=== PATIENT | male | born 1975 | race Caucasian/White ===

== ENCOUNTER 2018-10-14 13:18 | Inpatient (IN) ==
[2018-10-14 13:49] LABS: Bilirubin,Urine Negative (Negative); Blood,Urine Negative (Negative); Clarity,Urine Clear (Clear); Color,Urine Yellow (Yellow); Glucose,Urine (UA) Normal (Normal); Ketones,Urine Negative (Negative); Leukocyte Esterase,Urine Negative (Negative); Nitrite,Urine Negative (Negative); PH,Urine 5.5 pH Units (5.0-8.0); Protein,Urine Trace mg/dL (Neg-Trace); Specific Gravity,Urine 1.027 (1.010-1.025); Urobilinogen,Urine Normal (Normal)
--- NOTE | 2018-10-14 14:10 | Emergency Department Note ---
Disposition Clinical Impression: Elevated troponin, Ground glass opacity present on imaging of lung Dyspnea Qualifiers: Dyspnea type: dyspnea on exertion Qualified Code(s): R06.09 - Other forms of dyspnea CHF (congestive heart failure) Qualifiers: Heart failure type: systolic Heart failure chronicity: acute on chronic Qualified Code(s): I50.23 - Acute on chronic systolic (congestive) heart failure Disposition: Admitted As Inpatient Condition: Undetermined Referrals: NONE,PCP [Primary Care Provider] - Forms: ED Satisfaction Letter Time of Disposition: 16:19 General Adult HPI - General Chief complaint: ED Psychiatric Symptoms Stated complaint: SI Time Seen by Provider: 10/14/18 13:29 Source: patient Mode of arrival: ambulatory Limitations: no limitations Nursing Notes Reviewed: Yes Vital Signs Reviewed: Yes - History of Present Illness HPI Narrative: 43-year-old male with history of CHF, pacemaker defibrillator arrives to the emergency department multiple complaints. The patient has some this was thoughts but no true ideation. He states this is more managed to live anymore. The patient states that he has been dealing with some difficulty breathing, recent pneumonia, some abdominal pain. Patient had a recent endoscopy a few Days ago and was noted to have some mild abdominal discomfort. He denies any specific other complaints at this time. Patient is lucid and answering questions appropriately the room. No other acute processes noted. Pain Scale: 8 - Related Data Home Medications Medication Instructions Recorded Confirmed Aspirin Enteric Coated [Aspirin EC] 81 mg PO DAILY 10/14/18 10/14/18 Atorvastatin [Lipitor] 40 mg PO HS 10/14/18 10/14/18 Benzonatate [Tessalon] 200 mg PO TID PRN 10/14/18 10/14/18 Carvedilol 3.125 mg PO BID 10/14/18 10/14/18 Clopidogrel [Plavix] 75 mg PO DAILY 10/14/18 10/14/18 Doxycycline Hyclate 100 mg PO BID 10/14/18 10/14/18 Furosemide [Lasix] 20 mg PO DAILY 10/14/18 10/14/18 Lisinopril 2.5 mg PO DAILY 10/14/18 10/14/18 Metoprolol XL (24 HR) Succ [Toprol 25 mg PO DAILY 10/14/18 10/14/18 Xl] Nitroglycerin 0.4 mg SL AD PRN 10/14/18 10/14/18 Nystatin [Nystatin Suspension] 500,000 unit PO QID 10/14/18 10/14/18 Phenol [Chloraseptic] 2 spray MM 3-4XD PRN 10/14/18 10/14/18 Potassium Chloride [Klor-Con 10] 10 meq PO DAILY 10/14/18 10/14/18 Allergies Allergy/AdvReac Type Severity Reaction Status Date / Time ibuprofen [From Motrin] Allergy See Verified 10/14/18 15:05 Comments tramadol Allergy See Verified 10/14/18 15:05 Comments IVP DYE AdvReac Itching Uncoded 10/14/18 15:05 All systems ED: reviewed and negative except as stated. Constitutional: Denies: fever, chills, weakness ENT ED: Denies: dysphagia Cardiovascular: Reports: chest pain, dyspnea on exertion Respiratory: Reports: dyspnea. Denies: cough, sputum production Gastrointestinal: Reports: abdominal pain. Denies: nausea, vomiting, diarrhea Genitourinary: Denies: urgency, dysuria Musculoskeletal: Denies: back pain Integumentary: Denies: rash Neurological: Denies: headache Past Medical History - Past Medical History Attestation: Yes The following information was validated with the patient. Source: patient, old records reviewed Medical history: Reports: CHF, coronary artery disease, hypertension Surgical history: Reports: pacemaker/AICD Psychiatric history: Reports: depression - Social History Smoking Status: Current some day smoker Alcohol use: Reports: occasionally Drug use: Reports: marijuana Physical Exam - General Limitations: no limitations General appearance: alert, in no apparent distress - Head Head exam: atraumatic, normocephalic, normal inspection - Eye Eye exam: Present: normal appearance, PERRL, EOMI - ENT ENT exam: normal exam, normal oropharynx, mucous membranes moist - Neck Neck exam: Present: normal inspection, full ROM, trachea midline - Chest Chest inspection: Present: normal inspection, symmetric chest wall rise - Respiratory Respiratory exam: Present: normal lung sounds bilaterally - Cardiovascular Cardiovascular exam: Present: normal rhythm, tachycardia, normal heart sounds - Abdominal Exam Abdominal exam: Present: soft, tenderness (Diffuse, primarily epigastric). Absent: distention, guarding, rebound, rigidity - Extremities Exam Extremities exam: Present: normal inspection, full ROM, normal capillary refill. Absent: tenderness, pedal edema - Neurological Exam Neurological exam: Present: alert, oriented X3 - Skin Skin exam: Present: warm, dry, intact, normal color Course Vital Signs Temperature 98.1 F 10/14/18 13:24 Pulse Rate 110 10/14/18 13:24 Respiratory Rate 20 10/14/18 13:24 Blood Pressure 101/60 10/14/18 13:24 O2 Sat by Pulse Oximetry 97 10/14/18 13:24 Temperature 98.1 F 10/14/18 13:33 Pulse Rate 110 10/14/18 13:33 Respiratory Rate 20 10/14/18 13:33 Blood Pressure 101/60 10/14/18 13:33 O2 Sat by Pulse Oximetry 97 10/14/18 13:33 Oxygen Delivery Oxygen Delivery Room Air Medical Decision Making - MDM Narrative Medical decision making narrative: Patient's workup demonstrates findings concerning for elevated troponin here in the ED. He is currently chest pain-free below this past history of CHF and chest discomfort I am concerned and the patient was administered aspirin. The patient also finds consistent with a CHF. He does have groundglass appearance noted on CT scan of the abdomen and pelvis as well as atelectasis on chest x- ray. The patient will be administered azithromycin and Rocephin given the groundglass appearance and his history of some shortness of breath. The patient remains without suicidal ideation and without homicidal ideation. I do not feel as though the patient is be pink slipped at this time as the patient is stable however I do feel as though the patient will need consultation with psychiatric services. The patient will be admitted to the hospital at this time for further observation and care. We will cancel bedside sitter at this time. Patient made aware and agrees to plan. No further questions or concerns noted. Accepted by Dr. Simms. - Lab Data Lab results reviewed: Yes I reviewed the patient's lab results. Result diagrams: 10/14/18 13:54 10/14/18 13:54 Lab Results 10/14/18 10/14/18 10/14/18 Range/Units 13:40 13:40 13:54 WBC 12.9 H (4.3-11.1) K/mcL RBC 5.03 (4.19-5.50) M/mcL Hgb 14.0 (12.9-16.9) g/dL Hct 41.6 (37.5-50.1) % MCV 82.7 L (83.0-100.0) fL MCH 27.8 L (28.0-33.3) pg MCHC 33.7 (31.6-35.5) g/dL RDW 14.3 (11.5-14.5) % Plt Count 377 (140-400) K/mcL MPV 10.0 (9.4-12.4) fL Immature Gran % 2.1 (0-4) % Seg Neutrophils % 63.8 % Lymphocytes % 23.9 % Monocytes % 9.8 % Eosinophils % 0.2 % Basophils % 0.2 % Neutrophils # 8.2 (1.6-8.9) K/mcL Lymphocytes # 3.1 (0.6-4.6) K/mcL Monocytes # 1.3 (0.0-1.3) K/mcL Eosinophils # 0.0 (0.0-0.6) K/mcL Basophils # 0.0 (0.0-0.2) K/mcL Platelet Estimate Normal (Normal) Anisocytosis 1+ A (Not Present) Sodium (136-145) mEq/L Potassium (3.5-5.1) mEq/L Chloride (98-107) mEq/L Carbon Dioxide (23-29) mEq/L BUN (6-20) mg/dL Creatinine (0.70-1.30) mg/dL Est GFR ( Amer) (> 60) Est GFR (Non-Af Amer) (> 60) BUN/Creatinine Ratio (6-26) Glucose (70-105) mg/dL Calculated Osmolality (280-300) Calcium (8.6-10.3) mg/dL Troponin I (< 0.04) ng/mL B-Natriuretic Peptide (Less than 100) pg/mL Urine Color Yellow (Yellow) Urine Clarity Clear (Clear) Urine pH 5.5 (5.0-8.0) pH Units Ur Specific [place] 1.027 H (1.010-1.025) Urine Protein Trace (Neg-Trace) mg/dL Urine Glucose (UA) Normal (Normal) mg/dL Urine Ketones Negative (Negative) mg/dL Urine Blood Negative (Negative) Urine Nitrite Negative (Negative) Urine Bilirubin Negative (Negative) Urine Urobilinogen Normal (Normal) mg/dL Ur Leukocyte Esterase Negative (Negative) Salicylates (15.0-30.0) mg/dL Urine Opiates Screen Negative (Swekkc=084) ng/mL Acetaminophen (10-20) mcg/mL Ur Barbiturates Screen Negative (Yxcvfg=853) ng/mL Ur Phencyclidine Scrn Negative (Cutoff=25) ng/mL Ur Amphetamines Screen Negative (Bgylvv=6390) ng/mL U Benzodiazepines Scrn Positive H (Eszymm=592) ng/mL Urine Cocaine Screen Negative (Cutoff= 300) ng/mL U Marijuana (THC) Screen Positive H (Cutoff = 50) ng/mL Ur Drug Screen Interp See Below Ethyl Alcohol (Less than 10) mg/dL 10/14/18 10/14/18 Range/Units 13:54 13:54 WBC (4.3-11.1) K/mcL RBC (4.19-5.50) M/mcL Hgb (12.9-16.9) g/dL Hct (37.5-50.1) % MCV (83.0-100.0) fL MCH (28.0-33.3) pg MCHC (31.6-35.5) g/dL RDW (11.5-14.5) % Plt Count (140-400) K/mcL MPV (9.4-12.4) fL Immature Gran % (0-4) % Seg Neutrophils % % Lymphocytes % % Monocytes % % Eosinophils % % Basophils % % Neutrophils # (1.6-8.9) K/mcL Lymphocytes # (0.6-4.6) K/mcL Monocytes # (0.0-1.3) K/mcL Eosinophils # (0.0-0.6) K/mcL Basophils # (0.0-0.2) K/mcL Platelet Estimate (Normal) Anisocytosis (Not Present) Sodium 136 (136-145) mEq/L Potassium 4.4 (3.5-5.1) mEq/L Chloride 102 (98-107) mEq/L Carbon Dioxide 25 (23-29) mEq/L BUN 34 H (6-20) mg/dL Creatinine 1.14 (0.70-1.30) mg/dL Est GFR ( Amer) > 60 (> 60) Est GFR (Non-Af Amer) > 60 (> 60) BUN/Creatinine Ratio 30 H (6-26) Glucose 139 H (70-105) mg/dL Calculated Osmolality 292 (280-300) Calcium 8.4 L (8.6-10.3) mg/dL Troponin I 0.05 H* (< 0.04) ng/mL B-Natriuretic Peptide 378 H (Less than 100) pg/mL Urine Color (Yellow) Urine Clarity (Clear) Urine pH (5.0-8.0) pH Units Ur Specific [place] (1.010-1.025) Urine Protein (Neg-Trace) mg/dL Urine Glucose (UA) (Normal) mg/dL Urine Ketones (Negative) mg/dL Urine Blood (Negative) Urine Nitrite (Negative) Urine Bilirubin (Negative) Urine Urobilinogen (Normal) mg/dL Ur Leukocyte Esterase (Negative) Salicylates < 2.5 L (15.0-30.0) mg/dL Urine Opiates Screen (Squiyc=759) ng/mL Acetaminophen < 10 L (10-20) mcg/mL Ur Barbiturates Screen (Fmcqhi=604) ng/mL Ur Phencyclidine Scrn (Cutoff=25) ng/mL Ur Amphetamines Screen (Uwizep=7733) ng/mL U Benzodiazepines Scrn (Mbbkik=353) ng/mL Urine Cocaine Screen (Cutoff= 300) ng/mL U Marijuana (THC) Screen (Cutoff = 50) ng/mL Ur Drug Screen Interp Ethyl Alcohol < 10 (Less than 10) mg/dL - Radiology Data Radiology results reviewed: Yes I reviewed the patient's radiology results. Chest X-Ray 10/14/18 13:34 IMPRESSION: No active cardiopulmonary disease D/ / Jamel Cardenas MD / Jamel Cardenas MD Interpreting Provider: Jamel Cardenas MD Abdomen/Pelvis CT 10/14/18 14:05 IMPRESSION: Large amount of stool throughout the length of the colon. Nonobstructing left nephrolithiasis. Patchy ground-glass opacity at the lung bases bilaterally, for which edema or pneumonitis are considerations. Mild induration of the subcutaneous fat of the left lower quadrant anterior abdominal wall, potentially related to contusion, localized inflammation, or cellulitis. Suggest correlation with physical exam. D/ / Donta Madera MD / Donta Madera MD Interpreting Provider: Donta Madera MD - EKG Data EKG #1 EKG attestation: Yes I reviewed and interpreted this EKG. EKG results narrative: Heart rate 110 beats for minute. Sinus tachycardia. No ST elevation or ST depression noted. Attestation Statement - Attestation Attestation: I, Abiel Meredith DO, examined this patient [id number] and my medical decision-making was reviewed with Sae Hummel DO, Resident Physician. I agree with the documented findings, disposition and treatment plan as described except to the extent set forth below. I personally supervised and was present for the franklin/critical portions of the procedures completed by the resident documented below. Please see my progress notes for details.
[2018-10-14 14:20] LABS: Amphetamine Screen,Urine Negative ng/mL (Cutoff=1000); Barbiturate Screen,Urine Negative ng/mL (Cutoff=200); Benzodiazepines Screen,Urine Positive ng/mL (Cutoff=200); Cannabinoid Screen,Urine Positive ng/mL (Cutoff = 50); Cocaine Screen,Urine Negative ng/mL (Cutoff= 300); Opiate Screen,Urine Negative ng/mL (Cutoff=300); Phencyclidine Screen,Urine Negative ng/mL (Cutoff=25)
[2018-10-14 14:26] LABS: Basophils % 0.2 %; Eosinophils % 0.2 %; Hematocrit 41.6 % (37.5-50.1); Immature Granulocytes % 2.1 % (0-4); Lymphocytes # 3.1 K/mcL (0.6-4.6); Lymphocytes % 23.9 %; Mean Corpuscular HGB Conc 33.7 g/dL (31.6-35.5); Mean Corpuscular Hemoglobin 27.8 pg (28.0-33.3); Mean Corpuscular Volume 82.7 fL (83.0-100.0); Monocytes # 1.3 K/mcL (0.0-1.3); Monocytes % 9.8 %; Platelet Count 377 K/mcL (140-400); Red Blood Count 5.03 M/mcL (4.19-5.50); Red Cell Distribution Width 14.3 % (11.5-14.5); Segmented Neutrophils % 63.8 %
[2018-10-14 14:28] LABS: Neutrophils # 8.2 K/mcL (1.6-8.9)
[2018-10-14 14:46] LABS: Acetaminophen < 10 mcg/mL (10-20); BUN/Creatinine Ratio 30 (6-26); Blood Urea Nitrogen 34 mg/dL (6-20); Calcium 8.4 mg/dL (8.6-10.3); Carbon Dioxide 25 mEq/L (23-29); Chloride 102 mEq/L (98-107); Ethanol < 10 mg/dL (Less than 10); Glucose 139 mg/dL (70-105); Osmolality,Calculated 292 (280-300); Potassium 4.4 mEq/L (3.5-5.1); Salicylate < 2.5 mg/dL (15.0-30.0); Sodium 136 mEq/L (136-145); eGFR For Non-African Americans > 60 (> 60)
[2018-10-14 14:48] LABS: Anisocytosis 1+ (Not Present); Platelet Estimate Normal (Normal)
--- NOTE | 2018-10-14 14:57 | Emergency Department Note ---
Disposition Clinical Impression: Elevated troponin, Ground glass opacity present on imaging of lung Dyspnea Qualifiers: Dyspnea type: dyspnea on exertion Qualified Code(s): R06.09 - Other forms of dyspnea CHF (congestive heart failure) Qualifiers: Heart failure type: systolic Heart failure chronicity: acute on chronic Qualified Code(s): I50.23 - Acute on chronic systolic (congestive) heart failure Disposition: Admitted As Inpatient Condition: Good Referrals: NONE,PCP [Primary Care Provider] - Forms: ED Satisfaction Letter Time of Disposition: 16:19 General Adult HPI - General Chief complaint: ED General Medical Stated complaint: SI Time Seen by Provider: 10/14/18 13:29 Source: patient Mode of arrival: ambulatory Limitations: no limitations - History of Present Illness Pain Scale: 8 - Related Data Home Medications Medication Instructions Recorded Confirmed Aspirin Enteric Coated [Aspirin EC] 81 mg PO DAILY 10/14/18 10/14/18 Atorvastatin [Lipitor] 40 mg PO HS 10/14/18 10/14/18 Benzonatate [Tessalon] 200 mg PO TID PRN 10/14/18 10/14/18 Carvedilol 3.125 mg PO BID 10/14/18 10/14/18 Clopidogrel [Plavix] 75 mg PO DAILY 10/14/18 10/14/18 Doxycycline Hyclate 100 mg PO BID 10/14/18 10/14/18 Furosemide [Lasix] 20 mg PO DAILY 10/14/18 10/14/18 Lisinopril 2.5 mg PO DAILY 10/14/18 10/14/18 Metoprolol XL (24 HR) Succ [Toprol 25 mg PO DAILY 10/14/18 10/14/18 Xl] Nitroglycerin 0.4 mg SL AD PRN 10/14/18 10/14/18 Nystatin [Nystatin Suspension] 500,000 unit PO QID 10/14/18 10/14/18 Phenol [Chloraseptic] 2 spray MM 3-4XD PRN 10/14/18 10/14/18 Potassium Chloride [Klor-Con 10] 10 meq PO DAILY 10/14/18 10/14/18 Allergies Allergy/AdvReac Type Severity Reaction Status Date / Time ibuprofen [From Motrin] Allergy See Verified 10/14/18 15:05 Comments tramadol Allergy See Verified 10/14/18 15:05 Comments IVP DYE AdvReac Itching Uncoded 10/14/18 15:05 Constitutional: Denies: fever, chills, weakness ENT ED: Denies: dysphagia Cardiovascular: Reports: chest pain, dyspnea on exertion Respiratory: Reports: dyspnea. Denies: cough, sputum production Gastrointestinal: Reports: abdominal pain. Denies: nausea, vomiting, diarrhea Genitourinary: Denies: urgency, dysuria Musculoskeletal: Denies: back pain Integumentary: Denies: rash Neurological: Denies: headache Past Medical History - Past Medical History Medical history: Reports: CHF, coronary artery disease, hypertension Surgical history: Reports: pacemaker/AICD Psychiatric history: Reports: depression - Social History Smoking Status: Current some day smoker Smokeless Tobacco Status: No Alcohol use: Reports: occasionally Drug use: Reports: marijuana Physical Exam - General Limitations: no limitations General appearance: alert, in no apparent distress Course Vital Signs Temperature 98.1 F 10/14/18 13:24 Pulse Rate 110 10/14/18 13:24 Respiratory Rate 20 10/14/18 13:24 Blood Pressure 101/60 10/14/18 13:24 O2 Sat by Pulse Oximetry 97 10/14/18 13:24 Temperature 98.1 F 10/14/18 13:33 Pulse Rate 110 10/14/18 13:33 Respiratory Rate 20 10/14/18 13:33 Blood Pressure 101/60 10/14/18 13:33 O2 Sat by Pulse Oximetry 97 10/14/18 13:33 Oxygen Delivery Oxygen Delivery Room Air Medical Decision Making - Lab Data Result diagrams: 10/14/18 13:54 10/14/18 13:54 Lab Results 10/14/18 10/14/18 10/14/18 Range/Units 13:40 13:40 13:54 WBC 12.9 H (4.3-11.1) K/mcL RBC 5.03 (4.19-5.50) M/mcL Hgb 14.0 (12.9-16.9) g/dL Hct 41.6 (37.5-50.1) % MCV 82.7 L (83.0-100.0) fL MCH 27.8 L (28.0-33.3) pg MCHC 33.7 (31.6-35.5) g/dL RDW 14.3 (11.5-14.5) % Plt Count 377 (140-400) K/mcL MPV 10.0 (9.4-12.4) fL Immature Gran % 2.1 (0-4) % Seg Neutrophils % 63.8 % Lymphocytes % 23.9 % Monocytes % 9.8 % Eosinophils % 0.2 % Basophils % 0.2 % Neutrophils # 8.2 (1.6-8.9) K/mcL Lymphocytes # 3.1 (0.6-4.6) K/mcL Monocytes # 1.3 (0.0-1.3) K/mcL Eosinophils # 0.0 (0.0-0.6) K/mcL Basophils # 0.0 (0.0-0.2) K/mcL Platelet Estimate Normal (Normal) Anisocytosis 1+ A (Not Present) Sodium (136-145) mEq/L Potassium (3.5-5.1) mEq/L Chloride (98-107) mEq/L Carbon Dioxide (23-29) mEq/L BUN (6-20) mg/dL Creatinine (0.70-1.30) mg/dL Est GFR ( Amer) (> 60) Est GFR (Non-Af Amer) (> 60) BUN/Creatinine Ratio (6-26) Glucose (70-105) mg/dL Calculated Osmolality (280-300) Calcium (8.6-10.3) mg/dL Troponin I (< 0.04) ng/mL B-Natriuretic Peptide (Less than 100) pg/mL Urine Color Yellow (Yellow) Urine Clarity Clear (Clear) Urine pH 5.5 (5.0-8.0) pH Units Ur Specific [place] 1.027 H (1.010-1.025) Urine Protein Trace (Neg-Trace) mg/dL Urine Glucose (UA) Normal (Normal) mg/dL Urine Ketones Negative (Negative) mg/dL Urine Blood Negative (Negative) Urine Nitrite Negative (Negative) Urine Bilirubin Negative (Negative) Urine Urobilinogen Normal (Normal) mg/dL Ur Leukocyte Esterase Negative (Negative) Salicylates (15.0-30.0) mg/dL Urine Opiates Screen Negative (Cilyxw=771) ng/mL Acetaminophen (10-20) mcg/mL Ur Barbiturates Screen Negative (Kcptfc=762) ng/mL Ur Phencyclidine Scrn Negative (Cutoff=25) ng/mL Ur Amphetamines Screen Negative (Wozoxd=5635) ng/mL U Benzodiazepines Scrn Positive H (Qtxwme=663) ng/mL Urine Cocaine Screen Negative (Cutoff= 300) ng/mL U Marijuana (THC) Screen Positive H (Cutoff = 50) ng/mL Ur Drug Screen Interp See Below Ethyl Alcohol (Less than 10) mg/dL 10/14/18 10/14/18 Range/Units 13:54 13:54 WBC (4.3-11.1) K/mcL RBC (4.19-5.50) M/mcL Hgb (12.9-16.9) g/dL Hct (37.5-50.1) % MCV (83.0-100.0) fL MCH (28.0-33.3) pg MCHC (31.6-35.5) g/dL RDW (11.5-14.5) % Plt Count (140-400) K/mcL MPV (9.4-12.4) fL Immature Gran % (0-4) % Seg Neutrophils % % Lymphocytes % % Monocytes % % Eosinophils % % Basophils % % Neutrophils # (1.6-8.9) K/mcL Lymphocytes # (0.6-4.6) K/mcL Monocytes # (0.0-1.3) K/mcL Eosinophils # (0.0-0.6) K/mcL Basophils # (0.0-0.2) K/mcL Platelet Estimate (Normal) Anisocytosis (Not Present) Sodium 136 (136-145) mEq/L Potassium 4.4 (3.5-5.1) mEq/L Chloride 102 (98-107) mEq/L Carbon Dioxide 25 (23-29) mEq/L BUN 34 H (6-20) mg/dL Creatinine 1.14 (0.70-1.30) mg/dL Est GFR ( Amer) > 60 (> 60) Est GFR (Non-Af Amer) > 60 (> 60) BUN/Creatinine Ratio 30 H (6-26) Glucose 139 H (70-105) mg/dL Calculated Osmolality 292 (280-300) Calcium 8.4 L (8.6-10.3) mg/dL Troponin I 0.05 H* (< 0.04) ng/mL B-Natriuretic Peptide 378 H (Less than 100) pg/mL Urine Color (Yellow) Urine Clarity (Clear) Urine pH (5.0-8.0) pH Units Ur Specific [place] (1.010-1.025) Urine Protein (Neg-Trace) mg/dL Urine Glucose (UA) (Normal) mg/dL Urine Ketones (Negative) mg/dL Urine Blood (Negative) Urine Nitrite (Negative) Urine Bilirubin (Negative) Urine Urobilinogen (Normal) mg/dL Ur Leukocyte Esterase (Negative) Salicylates < 2.5 L (15.0-30.0) mg/dL Urine Opiates Screen (Fikurf=751) ng/mL Acetaminophen < 10 L (10-20) mcg/mL Ur Barbiturates Screen (Wduwxs=591) ng/mL Ur Phencyclidine Scrn (Cutoff=25) ng/mL Ur Amphetamines Screen (Azcylv=7676) ng/mL U Benzodiazepines Scrn (Ptzajk=466) ng/mL Urine Cocaine Screen (Cutoff= 300) ng/mL U Marijuana (THC) Screen (Cutoff = 50) ng/mL Ur Drug Screen Interp Ethyl Alcohol < 10 (Less than 10) mg/dL Attestation Statement - Attestation Attestation: I, Abiel Meredith DO, examined this patient [id number] and my medical decision-making was reviewed with Sae Hummel DO, Resident Physician. I agree with the documented findings, disposition and treatment plan as described except to the extent set forth below. I personally supervised and was present for the franklin/critical portions of the procedures completed by the resident documented below. Please see my progress notes for details. 43-year-old male presents emergency room for evaluation of suicidal ideation with no specific plan. Patient also has some tangential thought. Patient does have chronic medical issues including cardiac related issues as well as having a recent endoscopy completed yesterday. He is having some mild abdominal discomfort. He is denying any fevers or chills. He does not have any shortness of breath chest pain or complaints at this time. Denies any nausea vomiting or diarrhea. He has not fallen or injured himself. He denies any ingestion of me dications attempt to hurt himself. At this time is otherwise currently stable. Vital signs reviewed and he is tachycardic on presentation. Head is atraumatic. His lungs are clear. His heart is regular. Anterior pacemaker site appears to be well-healed and showing no signs of infection. Abdomen is soft does have some mild discomfort with palpation. No point tenderness guarding or rigidity i s noted on exam. He denies any urinary symptoms or discharge. Patient will have medical clearance evaluation completed this time a chest x-ray EKG and labs including CT imaging of the abdomen. Psychiatric evaluation will be completed after the medical clearance has been established. Otherwise the patient is describing no other acute issues or symptoms at this time. Disposition pending full workup and treatment course. See detailed documentation of the physical exam, medical intervention, medical decision-making and disposition in the resident physician's note. No critical care applied the patient's treatment course at this time. 1500 Patient found have an elevated troponin here today. Chest x-ray is unremarkable and the patient is chest pain-free here. He has had intermittent chest pain or last several days. Because this patient was provided with an aspirin. He will be admitted for chest pain evaluation and psychiatric treatment during the hospital stay. No other acute issues at this time. Patient is otherwise clinically stable. Admission process to be established at this point. CT imaging of the abdomen is still pending and once that is result of the disposition will be completed. Patient also has bilateral pneumonia. Antibiotic regimen has been started. Is otherwise clinically stable. The hospitalist Dr. chadwick has reviewed the case. No other recommendations or concerns this time. Patient is not currently pink slip because he is denying suicidal ideation or other symptoms at this time. Patient is otherwise clinically stable. He will be monitored here in the emergency department until admission process is completed.
[2018-10-14 14:59] LABS: Troponin I 0.05 ng/mL (< 0.04)
[2018-10-14] MEDS ORDERED: Aspirin 325 MG TABLET PO ONE (14:59)
[2018-10-14] MEDS ORDERED: *HR* OxyCODONE/APAP 5/325 TABLET PO ONE (15:38)
[2018-10-14] MEDS ORDERED: cefTRIAXone 1,000 MG in Water for inj. (sterile) 20 ML 10 ML IVP ONE (15:53)
[2018-10-14] MEDS ORDERED: Azithromycin 500 MG in D5% in Water 250 ML IVPB ONE (15:53)
[2018-10-14] MEDS ORDERED: Naloxone 0.4 MG/ML INJ IVP PRN (16:29)
[2018-10-14] MEDS ORDERED: Nitroglycerin 0.4 MG TAB.SUBL SL PRN (16:32)
[2018-10-14] MEDS ORDERED: Furosemide 40 MG/4 ML VIAL IVP SCH (16:45)
--- NOTE | 2018-10-14 17:19 | Internal Med History&Physical ---
Date of Encounter: 10/14/18 Time of Encounter: 17:07 Internal Medicine - H&P: HPI Chief complaint: generalized weakness. shortness of breath Admitted From: Home Plans for Post Hospital Care: Home History of present illness: Mr. Tang is a 43 year old male PMH of severe CHF e.f 20%, CAD, multiples MIs last one a month ago, Interstitial lung disease? and recent pneumonia. Patient presented to the ED due to generalized weakness, shortness of breath, and chest discomfort. Patient reports that for the past month he has been hospitalized multiple times. Reports that he was admitted at a hospital in [facility] due to pneumonia and he was in the hospital for about 3 weeks and he decided to leave [place], but reports that he went to [facility] 2 days after leaving the hospital at [place] due to chest discomfort and shortness of breath. Reports that at [facility] he was told he had pneumonia and possible interstitial lung disease and acute CHF.He underwent an EGD there which showed oesophagitis and g astritis. He also left [facility] against medical advice 2 days ago. Today he was brought to the ED at [facility] by his significant other as patient continues to have chest discomfort, generalized weakness and shortness of breath with minimal ambulation. Patient reports that he has been having chest discomfort which is worsened by foods. Also reports getting short of breath with minimal ambulation. denies abdominal pain, but reports that he has not have a bowel movement for about 2 weeks now. Also report subjective weight lost of about 30 pounds for the past couple of months. Denies fever/chills or productive cough. Past Med Surg Social Fam HX - Past Medical History Medical history: CHF, coronary artery disease, hypertension Psychiatric history: depression - Past Surgical History Surgical History: pacemaker/AICD - Social History Smoking Status: Current some day smoker Smokeless Tobacco Status: No Alcohol use: occasionally Drug use: marijuana Internal Medicine - H&P: Meds Aspirin Enteric Coated [Aspirin EC] 81 mg PO DAILY 10/14/18 [History] Atorvastatin [Lipitor] 40 mg PO HS 10/14/18 [History] Benzonatate [Tessalon] 200 mg PO TID PRN 10/14/18 [History] Carvedilol 3.125 mg PO BID 10/14/18 [History] Clopidogrel [Plavix] 75 mg PO DAILY 10/14/18 [History] Doxycycline Hyclate 100 mg PO BID 10/14/18 [History] Furosemide [Lasix] 20 mg PO DAILY 10/14/18 [History] Lisinopril 2.5 mg PO DAILY 10/14/18 [History] Metoprolol XL (24 HR) Succ [Toprol Xl] 25 mg PO DAILY 10/14/18 [History] Nitroglycerin 0.4 mg SL AD PRN 10/14/18 [History] Nystatin [Nystatin Suspension] 500,000 unit PO QID 10/14/18 [History] Phenol [Chloraseptic] 2 spray MM 3-4XD PRN 10/14/18 [History] Potassium Chloride [Klor-Con 10] 10 meq PO DAILY 10/14/18 [History] Allergy/AdvReac Type Severity Reaction Status Date / Time ibuprofen [From Motrin] Allergy See Verified 10/14/18 15:05 Comments tramadol Allergy See Verified 10/14/18 15:05 Comments IVP DYE AdvReac Itching Uncoded 10/14/18 15:05 All Systems PM: A 10-system review of systems was performed and is negative for pertinent findings except as documented above in the HPI. - Constitutional Constitutional: anorexia, weakness, no chills, no fever(s) - EENT Eyes: no irritation, no pain Nose, mouth and throat: no dry mouth, no mouth pain - Cardiovascular Cardiovascular ROS IM: chest pain (chest discomfort ), dyspnea on exertion, no irregular heart rhythm, no lightheadedness, no orthopnea, no palpitations, no syncope - Respiratory Respiratory: no cough, no chest congestion, no excessive phlegm production - Gastrointestinal Gastrointestinal: no abdominal pain, no nausea, no tenesmus - Genitourinary Genitourinary ROS male: no dysuria, no urinary frequency, no urinary urgency - Musculoskeletal Musculoskeletal ROS IM: no atrophy, no numbness, no stiffness - Integumentary Integumentary IM: no erythema, no rash - Neurological Neurological ROS: no headache(s), no weakness - Psychiatric Psychiatric: hopelessness, no anxiety, no irritability - Endocrine Endocrine IM: no cold intolerance, no excessive sweating - Hematologic/Lymphatic Hematologic/Lymphatic: no lymphadenopathy - Allergic/Immunologic Allergic/Immunologic: no wheezing - Constitutional Vitals: Temp Pulse Resp BP Pulse Ox 98.1 F 110 20 101/60 97 10/14/18 13:33 10/14/18 13:33 10/14/18 13:33 10/14/18 13:33 10/14/18 13:33 Exam: Vitals: Reviewed General: Alert and oriented x4. In mild distress due to generalized weakness Skin: Normal color, no rash, no lesions. HEENT: EOM, pupils equal, round and reactive. Cardiovascular: RRR, normal S1 & S2, no rubs, murmurs or gallops. Lungs: CTA b/l, no wheezes or crackles. Abdomen: Soft, non-tender, no rigidity. Extremities: No deformity, no edema or tenderness, no joint swelling or clubbing. Neurological: Normal cognition and motor skills. Rest of the physical exam is non contributory Internal Med - H&P Results - Labs CBC & Chem 7: 10/14/18 13:54 10/14/18 13:54 Labs: Short CBC 10/14/18 Range/Units 13:54 WBC 12.9 H (4.3-11.1) K/mcL Hgb 14.0 (12.9-16.9) g/dL Hct 41.6 (37.5-50.1) % Plt Count 377 (140-400) K/mcL Neutrophils # 8.2 (1.6-8.9) K/mcL BMP 10/14/18 13:54 Sodium 136 Potassium 4.4 Chloride 102 Carbon Dioxide 25 BUN 34 H Creatinine 1.14 Glucose 139 H Calcium 8.4 L Cardiac Enzymes 10/14/18 Range/Units 13:54 Troponin I 0.05 H* (< 0.04) ng/mL Urine 10/14/18 Range/Units 13:40 Urine Color Yellow (Yellow) Urine Clarity Clear (Clear) Urine pH 5.5 (5.0-8.0) pH Units Ur Specific [place] 1.027 H (1.010-1.025) Urine Protein Trace (Neg-Trace) mg/dL Urine Glucose (UA) Normal (Normal) mg/dL - Impressions ITS Impressions Chest X-Ray 10/14/18 13:34 IMPRESSION: No active cardiopulmonary disease D/ / Jamel Cardenas MD / Jamel Cardenas MD Interpreting Provider: Jamel Cardenas MD Abdomen/Pelvis CT 10/14/18 14:05 IMPRESSION: Large amount of stool throughout the length of the colon. Nonobstructing left nephrolithiasis. Patchy ground-glass opacity at the lung bases bilaterally, for which edema or pneumonitis are considerations. Mild induration of the subcutaneous fat of the left lower quadrant anterior abdominal wall, potentially related to contusion, localized inflammation, or cellulitis. Suggest correlation with physical exam. D/ / Donta Madera MD / Donta Madera MD Interpreting Provider: Donta Madera MD - Diagnostic Studies Chest x-ray Status: image reviewed by me (no acute pulm disease. ) - Assessment and Plan (1) Pneumonia Current Visit: Yes Status: Suspected Assessment and plan: CT OF THE ABDOMEN AND PELVIS WITHOUT CONTRAST Lower Chest: Portion of pacemaker lead is seen. Patchy ground-glass opacity is seen within the lower lobes and right middle lobe. patient reported being treated for pneumonia about 3 weeks ago and being told he has interstitial lung disease will start patient empirically on piperacillin/tazobactam 3.375mg/IV Q8HRs CT chest to better visualize lung parenchyma D-dimer ordered urine for atypical sputum culture and gram stain Qualifiers: Pneumonia type: due to unspecified organism Laterality: bilateral Lung location: unspecified part of lung Qualified Code(s): J18.9 - Pneumonia, unspecified organism (2) Depression Current Visit: Yes Status: Acute Assessment and plan: patient reports feeling depressed and hopeless due to his sickness for the past couple of months. denies suicidal or homicidal ideation. psychiatry consulted. Qualifiers: Depression Type: unspecified Qualified Code(s): F32.9 - Major depressive disorder, single episode, unspecified (3) Generalized weakness Current Visit: Yes Status: Acute (4) CAD (coronary artery disease) Current Visit: Yes Status: Chronic Assessment and plan: patient reported having a NE about a month ago. will continue plavix 75mg/PO daily. Qualifiers: Coronary Disease-Associated Artery/Lesion type: unspecified vessel or lesion type [place] vs. transplanted heart: unspecified whether [place] or transplanted heart Associated angina: angina presence unspecified Qualified Code(s): I25.10 - Atherosclerotic heart disease of [place] coronary artery without angina pectoris (5) Gastritis Current Visit: Yes Status: Acute Assessment and plan: patient had an EGD at [facility] less than a week ago. will start patient on pantoprazole 40mg/IV daily and sulcrafate. Qualifiers: Gastritis type: unspecified gastritis Chronicity: acute Gastritis bleeding: without bleeding Qualified Code(s): K29.00 - Acute gastritis without bleeding (6) Esophagitis Current Visit: Yes Status: Acute Assessment and plan: plan of care as above (7) CHF (congestive heart failure) Current Visit: Yes Status: Acute Assessment and plan: patient reported being told that his E.F is 20%. will repeat TTE furosemide 40mg/IV daily will resume bb at a lower dose fluid restriction to 1.5 litters a day. daily weight and strict intake and output. Qualifiers: Heart failure type: systolic Heart failure chronicity: acute on chronic Qualified Code(s): I50.23 - Acute on chronic systolic (congestive) heart failure (8) Constipation Current Visit: Yes Status: Acute Assessment and plan: patient reports no having a BM for the past 2 weeks. denies nausea or vomiting. abd/pelv CT: GI/Bowel: Large amount of stool throughout the length of the colon. Appendix is not visualized. Small bowel loops are nondilated. will start patient on lactulose Qualifiers: Constipation type: unspecified constipation type Qualified Code(s): K59.00 - Constipation, unspecified (9) Elevated troponin Current Visit: Yes Status: Acute Assessment and plan: possible due to demand ischemia. patient with mild chf exacerbation will trend troponin if trops trend uo, will place the patient on a heparin drip cafeteria monitor (10) HLD (hyperlipidemia) Current Visit: Yes Status: Chronic Assessment and plan: on atorvastatin 40mg/PO daily Qualifiers: Hyperlipidemia type: unspecified Qualified Code(s): E78.5 - Hyperlipidemia, unspecified - Time Spent With Patient Total time spent is greater than 50% in coordination of care (as documented) at patient's floor/unit and/or counseling patient: Greater than 35 minutes (45)
[2018-10-14] MEDS: *HR* HYDROcodone/Acet 5/325 mg TABLET PO PRN (20:00)
[2018-10-14] MEDS: Piperacillin/Tazobactam 3.375 GM in 0.9 % Sodium Chloride Mini Bag 100 ML IVPB SCH (20:00)
[2018-10-14] MEDS: Pantoprazole 40 MG VIAL IVP SCH (20:02)
[2018-10-14] MEDS ORDERED: Perflutren Lipid Microsphere 1.3 ML in 0.9 % Sodium Chloride 8.7 ML IVP ONE (20:51)
[2018-10-14] MEDS: Levalbuterol Neb 0.63 MG/3 ML IH SCH (22:20)
[2018-10-14] MEDS: Sucralfate 1 GM TABLET PO SCH (22:40)
[2018-10-14] MEDS: Lactulose Oral Soln 20 GM/30 ML UDC PO SCH (22:41)
[2018-10-14] MEDS: *HR* Heparin 5,000 UNIT/ML VIAL SQ SCH (23:18)
[2018-10-15 00:37] LABS: Basophils % 0.2 %; Eosinophils # 0.1 K/mcL (0.0-0.6); Eosinophils % 0.4 %; Hematocrit 36.5 % (37.5-50.1); Immature Granulocytes % 2.2 % (0-4); Lymphocytes # 3.9 K/mcL (0.6-4.6); Lymphocytes % 32.1 %; Mean Corpuscular HGB Conc 33.7 g/dL (31.6-35.5); Mean Corpuscular Hemoglobin 27.7 pg (28.0-33.3); Mean Corpuscular Volume 82.2 fL (83.0-100.0); Mean Platelet Volume 9.9 fL (9.4-12.4); Monocytes # 1.2 K/mcL (0.0-1.3); Monocytes % 9.9 %; Neutrophils # 6.7 K/mcL (1.6-8.9); Platelet Count 297 K/mcL (140-400); Red Blood Count 4.44 M/mcL (4.19-5.50); Segmented Neutrophils % 55.2 %
[2018-10-15 00:49] LABS: Hemoglobin 12.3 g/dL (12.9-16.9)
[2018-10-15] MEDS ORDERED: *HR* OxyCODONE/APAP 5/325 TABLET PO ONE (00:52)
[2018-10-15 00:56] LABS: BUN/Creatinine Ratio 33 (6-26); Blood Urea Nitrogen 30 mg/dL (6-20); Calcium 7.9 mg/dL (8.6-10.3); Carbon Dioxide 24 mEq/L (23-29); Chloride 100 mEq/L (98-107); Cholesterol 181 mg/dL (< 200); Glucose 121 mg/dL (70-105); HDL Cholesterol 30 mg/dL (40-59); LDL Cholesterol,Calculated 130 mg/dL (0-99); Magnesium 2.4 mg/dL (1.6-2.6); Osmolality,Calculated 283 (280-300); Phosphorous 3.7 mg/dL (2.7-4.5); Potassium 3.8 mEq/L (3.5-5.1); Sodium 133 mEq/L (136-145); Triglycerides 103 mg/dL (< 150); eGFR For Non-African Americans > 60 (> 60)
[2018-10-15 02:24] LABS: Platelet Estimate Normal (Normal); Reactive Lymphocytes Present (Not Present)
[2018-10-15] MEDS: Levalbuterol Neb 0.63 MG/3 ML IH SCH ×4 (03:51→22:20)
[2018-10-15] MEDS: Piperacillin/Tazobactam 3.375 GM in 0.9 % Sodium Chloride Mini Bag 100 ML IVPB SCH ×3 (04:22→17:08)
[2018-10-15] MEDS: *HR* Heparin 5,000 UNIT/ML VIAL SQ SCH ×3 (06:11→21:54)
[2018-10-15] MEDS: *HR* HYDROcodone/Acet 5/325 mg TABLET PO PRN ×4 (06:15→23:30)
[2018-10-15] MEDS ORDERED: Metoprolol XL (24 HR) Succ 25 MG TAB.ER.24H PO SCH (09:00)
[2018-10-15] MEDS ORDERED: Levofloxacin 750 MG/150 ML 750 MG/150 ML BAG IVPB SCH (09:00)
[2018-10-15] MEDS ORDERED: Furosemide 20 MG/2 ML VIAL IVP SCH (09:00)
[2018-10-15] MEDS: Aspirin Enteric Coated 81 MG Tablet PO SCH (09:18)
[2018-10-15] MEDS: Sucralfate 1 GM TABLET PO SCH ×4 (09:18→21:55)
[2018-10-15] MEDS: Pantoprazole 40 MG VIAL IVP SCH (09:19)
[2018-10-15] MEDS: Lactulose Oral Soln 20 GM/30 ML UDC PO SCH ×2 (09:19→21:54)
[2018-10-15] MEDS: Levofloxacin 750 MG/150 ML 750 MG/150 ML BAG IVPB SCH (09:20)
--- NOTE | 2018-10-15 09:45 | Internal Med Progress Note ---
Hospitalist Progress Note - Encounter Date of Encounter: 10/15/18 Time of Encounter: 09:43 - Subjective Interval History: I have seen and evaluated the patient at bedside. patient reports having pain with swallowing. denies shortness of breath or chest pain. denies nausea, vomiting or loose stool. - Exam Vitals: Temp Pulse Resp BP Pulse Ox 97.9 F 81 16 84/60 94 10/15/18 07:41 10/15/18 07:41 10/15/18 07:41 10/15/18 07:41 10/15/18 07:41 Exam: Vitals: Reviewed General: Alert and oriented x4. In no distress Cardiovascular: RRR, normal S1 & S2, no rubs, murmurs or gallops. Lungs: CTA b/l, no wheezes or crackles. Abdomen: Soft, non-tender, no rigidity. Extremities: No edema Neurological: Normal cognition and motor skills. Rest of the physical exam is non contributory - Assessment and Plan (1) CHF (congestive heart failure) Current Visit: Yes Status: Acute Assessment and Plan: EV/EV echocardiogram w enhance Impressions: LVEF 20-25%. Severely dilated left ventricle. Severe global and segmental left ventricular systolic dysfunction. Mild left ventricular diastolic dysfunction. Normal right ventricular structure and function. Mildly dilated left atrium. Mild-moderate mitral regurgitation. Unable to estimate RVSP due to lack of TR jet. Recommend Cardiology consult. Plan Continue fluid restriction 1.5 L Decrease furosemide to 20 mg daily, to low blood pressure will discontinue bb due to hypotension cardiology consulted, recommendations appreciated daily weight and strict intake and output (2) Pneumonia Current Visit: Yes Status: Acute Assessment and Plan: CT/CT chest wo con IMPRESSION: Patchy ground-glass infiltrate seen in both the left and right lungs may be secondary to early or atypical pneumonia. Plan patient reported being treated for pneumonia about 3-4 weeks ago. will cover patient for Hcap vancomycin per pharmacy protocol added levofloxacin 750mg/IV daily continue piperacillin/tazobactam 3.375mg/IV Q8HRs sputum culture and gram stain, urine for atypical organism ordered MRSA surveillance ordered (3) Depression Current Visit: Yes Status: Chronic Assessment and Plan: patient reports hopelessness. but denies suicidal or homicidal ideation psychiatry consulted, recommendations appreciated. (4) Generalized weakness Current Visit: Yes Status: Acute Assessment and Plan: multifactorial possible due to prolong hospitalization vs severe chf daily PT/OT ordered (5) CAD (coronary artery disease) Current Visit: Yes Status: Chronic Assessment and Plan: Patient is on dual antiplatelet therapy with aspirin and Plavix. (6) Gastritis Current Visit: Yes Status: Acute Assessment and Plan: patient had an EGD at [facility] less than a week ago. Continue pantoprazole 40mg/IV daily and sulcrafate. (7) Esophagitis Current Visit: Yes Status: Acute Assessment and Plan: plan of care as above (8) Constipation Current Visit: Yes Status: Chronic Assessment and Plan: On lactulose (9) Elevated troponin Current Visit: Yes Status: Acute Assessment and Plan: possible due to demand ischemia. patient with no chest pain or ekg changes. (10) HLD (hyperlipidemia) Current Visit: Yes Status: Chronic Assessment and Plan: Continue atorvastatin DVT Prophylaxis: Patient is on subcutaneous heparin. - Summary of Assessment and Plan Summary of Assessment and Plan: Patient to remain in the hospital due to severe CHF, and generalized weakness. Pneumonia on broad-spectrum antibiotic. - Time Spent with Patient Total time spent is greater than 50% in coordination of care (as documented) at patient's floor/unit and/or counseling patient: Greater than 35 minutes (40) Plan of Care Discussed with: patient (and the nurse) Internal Medicine: Result - Labs CBC & Chem 7: 10/15/18 00:16 10/15/18 00:16 Labs: Short CBC 10/14/18 10/15/18 Range/Units 13:54 00:16 WBC 12.9 H 12.1 H (4.3-11.1) K/mcL Hgb 14.0 12.3 L D (12.9-16.9) g/dL Hct 41.6 36.5 L (37.5-50.1) % Plt Count 377 297 (140-400) K/mcL Neutrophils # 8.2 6.7 (1.6-8.9) K/mcL BMP 10/14/18 10/15/18 13:54 00:16 Sodium 136 133 L Potassium 4.4 3.8 Chloride 102 100 Carbon Dioxide 25 24 BUN 34 H 30 H Creatinine 1.14 0.92 Glucose 139 H 121 H Calcium 8.4 L 7.9 L Cardiac Enzymes 10/14/18 10/14/18 10/15/18 Range/Units 13:54 18:01 00:16 Troponin I 0.05 H* 0.05 H* 0.06 H* (< 0.04) ng/mL 10/15/18 Range/Units 06:08 Troponin I 0.06 H* (< 0.04) ng/mL Urine 10/14/18 Range/Units 13:40 Urine Color Yellow (Yellow) Urine Clarity Clear (Clear) Urine pH 5.5 (5.0-8.0) pH Units Ur Specific [place] 1.027 H (1.010-1.025) Urine Protein Trace (Neg-Trace) mg/dL Urine Glucose (UA) Normal (Normal) mg/dL - ABG Interpretation ABG results: PT/INR, D-dimer 1064 ng/mLFEU (0-500) H 10/14/18 18:01 - Impressions Impressions Chest X-Ray 10/14/18 13:34 IMPRESSION: No active cardiopulmonary disease D/ / Jamel Cardenas MD / Jamel Cardenas MD Interpreting Provider: Jamel Cardenas MD Abdomen/Pelvis CT 10/14/18 14:05 IMPRESSION: Large amount of stool throughout the length of the colon. Nonobstructing left nephrolithiasis. Patchy ground-glass opacity at the lung bases bilaterally, for which edema or pneumonitis are considerations. Mild induration of the subcutaneous fat of the left lower quadrant anterior abdominal wall, potentially related to contusion, localized inflammation, or cellulitis. Suggest correlation with physical exam. D/ / Donta Madera MD / Donta Madera MD Interpreting Provider: Donta Madera MD Echocardiogram 10/14/18 16:32 Impressions: LVEF 20-25%. Severely dilated left ventricle. Severe global and segmental left ventricular systolic dysfunction. Mild left ventricular diastolic dysfunction. Normal right ventricular structure and function. Mildly dilated left atrium. Mild-moderate mitral regurgitation. Unable to estimate RVSP due to lack of TR jet. Recommend Cardiology consult. Left Ventricular Wall Motion: Rest Echo Findings The apex, apical inferior, apical anterior, mid anterior, basal anterior, apical septal, mid inferior septal, basal inferior septal, apical lateral, mid anterior lateral, basal anterior lateral, mid anterior septal, mid inferior lateral, basal anterior septal and basal inferior lateral ortiz were hypokinetic. The mid inferior and basal inferior ortiz were akinetic. Findings: Study Quality * Technically adequate exam. ECG Findings * Normal sinus rhythm. Left Ventricle * LVEF 20-25%. * Severely dilated left ventricle. * Mild eccentricic left ventricular hypertrophy. * Severe global and segmental left ventricular systolic dysfunction. * Mild left ventricular diastolic dysfunction. * There is no LV thrombus. * Definity echo contrast was used. Right Ventricle * Normal right ventricular structure and function. Left Atrium * Mildly dilated left atrium. Right Atrium * Normal right atrial size. Interatrial Septum * Interatrial septum not well evaluated. Aortic Valve * Aortic valve not well visualized. * No aortic regurgitation. * Normal aortic valve function. Mitral Valve * Normal mitral valve structure. * No mitral stenosis. * Mild-moderate mitral regurgitation. Tricuspid Valve * Normal tricuspid valve structure. * No tricuspid stenosis. * Trace tricuspid regurgitation. * Unable to estimate RVSP due to lack of TR jet. * Estimated RA pressure is 3 mmHg. Pulmonic Valve * Pulmonic valve is not well visualized. * No pulmonic stenosis. * No pulmonic regurgitation. Aorta * Normally sized aortic root. Pericardium * The pericardium appears normal. IVC * The IVC is not dilated. * > 50% respiratory change Device lead * A device lead was visualized in the right atrium and right ventricle. Chest CT 10/14/18 17:04 IMPRESSION: Patchy ground-glass infiltrate seen in both the left and right lungs may be secondary to early or atypical pneumonia. D/ / 10/14/2018 18:02:14 Shorty Acevedo MD / [facility] Interpreting Provider: Shorty Acevedo MD Consult Discharge Plan - Plan Referrals: NONE,PCP [Primary Care Provider] - (1) CHF (congestive heart failure) Qualifiers: Heart failure type: systolic Heart failure chronicity: acute on chronic Qualified Code(s): I50.23 - Acute on chronic systolic (congestive) heart failure (2) Pneumonia Qualifiers: Pneumonia type: due to unspecified organism Laterality: bilateral Lung location: unspecified part of lung Qualified Code(s): J18.9 - Pneumonia, unspecified organism (3) Depression Qualifiers: Depression Type: unspecified Qualified Code(s): F32.9 - Major depressive disorder, single episode, unspecified (5) CAD (coronary artery disease) Qualifiers: Coronary Disease-Associated Artery/Lesion type: unspecified vessel or lesion type [place] vs. transplanted heart: unspecified whether [place] or transplanted heart Associated angina: angina presence unspecified Qualified Code(s): I25.10 - Atherosclerotic heart disease of [place] coronary artery without angina pectoris (6) Gastritis Qualifiers: Gastritis type: unspecified gastritis Chronicity: acute Gastritis bleeding: without bleeding Qualified Code(s): K29.00 - Acute gastritis without bleeding (8) Constipation Qualifiers: Constipation type: unspecified constipation type Qualified Code(s): K59.00 - Constipation, unspecified (10) HLD (hyperlipidemia) Qualifiers: Hyperlipidemia type: unspecified Qualified Code(s): E78.5 - Hyperlipidemia, unspecified
--- NOTE | 2018-10-15 09:49 | Consult Note ---
Date of Encounter: 10/15/18 Time of Encounter: 09:10 Assessment & Recommendation (1) Major depressive disorder, recurrent severe without psychotic features Current visit: Yes Status: Acute Assessment & Recommendation: No suicidal or homicidal ideation. At this time patient does not meet criteria for inpatient psychiatric hospitalization, will continue to follow if this changes. Discussed medication options with patient and patient expressed interest in talk therapy vs pharmacotherapy. Recommend follow-up outpatient psychiatry with andrea soni or nidia purcell. History of Present Illness Requesting Physician: Milton Hughes MD History of present illness: Mr. Tang is a 43 year old male who presents with feeling depressed and hopeless. Patient reports he has been going through a lot over the past few months with medical problems concerning his lungs, heart, and pancreas. He recently made a post on social media describing who he would like his belongings to go to. He explains that he just wants to be done with suffering. He explains that he doesn't feel safe at home due to contamination. He is on social security and lives with his sister which he describes lives in "[facility] There are 9 cats that live in the house and there is urine everywhere. The air is not clean. He describes the whole house just being dirty. When conversation came up about his daughter, he started to cry. He doesn't have custody of his daughter and hasn't seen her in over a year. He says "I had her when I was 39 years old and I didn't give her a chance at a good life." The daughter presently lives with his cousin who the patient says is a really good person. Patient explains he was hospitalized at [facility] in their psychiatric unit 10 years ago for suicidal thoughts after his step brother completed suicide by shooting. Patient reports poor sleep, decreased energy and concentration. Denies suicidal or homicidal ideation. CC: Milton Hughes MD Past Med Surg Social Fam HX - Past Medical History Medical history: CHF, coronary artery disease, hypertension - Past Psychiatric History Psychiatric history: Reports: depression, previous psychiatric hospitalization Past psychiatric history details: Patient reports periods of depression. Hospitalized for suicidal thoughts two times in his lifetime at [facility]. No previous attempts. - Past Surgical History Surgical History: pacemaker/AICD - Social History Smoking Status: Current some day smoker Smokeless Tobacco Status: No Alcohol use: occasionally Drug use: marijuana - Additional Family History Additional family history: Step brother completed suicide by shooting. Medications & Allergies Aspirin Enteric Coated [Aspirin EC] 81 mg PO DAILY 10/14/18 [History] Atorvastatin [Lipitor] 40 mg PO HS 10/14/18 [History] Benzonatate [Tessalon] 200 mg PO TID PRN 10/14/18 [History] Carvedilol 3.125 mg PO BID 10/14/18 [History] Clopidogrel [Plavix] 75 mg PO DAILY 10/14/18 [History] Doxycycline Hyclate 100 mg PO BID 10/14/18 [History] Furosemide [Lasix] 20 mg PO DAILY 10/14/18 [History] Lisinopril 2.5 mg PO DAILY 10/14/18 [History] Metoprolol XL (24 HR) Succ [Toprol Xl] 25 mg PO DAILY 10/14/18 [History] Nitroglycerin 0.4 mg SL AD PRN 10/14/18 [History] Nystatin [Nystatin Suspension] 500,000 unit PO QID 10/14/18 [History] Phenol [Chloraseptic] 2 spray MM 3-4XD PRN 10/14/18 [History] Potassium Chloride [Klor-Con 10] 10 meq PO DAILY 10/14/18 [History] Allergy/AdvReac Type Severity Reaction Status Date / Time ibuprofen [From Motrin] Allergy See Verified 10/14/18 15:05 Comments tramadol Allergy See Verified 10/14/18 15:05 Comments IVP DYE AdvReac Itching Uncoded 10/14/18 15:05 Review of Systems Constitutional: Reports: weakness, weight change. Denies: fever, chills Ears, Nose, Throat: Denies: ear pain Cardiovascular: Reports: chest pain, dyspnea on exertion Respiratory: Denies: cough, hemoptysis Gastrointestinal: Denies: abdominal pain, nausea, vomiting Genitourinary male: Denies: urgency, dysuria, frequency, genital lesions Musculoskeletal: Denies: joint swelling, joint pain Integumentary: Denies: rash, lesions Neurological: Denies: headache, weakness Psychiatric: Reports: depression, abnormal sleep pattern, difficulty concentrating, hopelessness, irritability. Denies: anxiety, suicidal ideation, homicidal ideation, auditory hallucinations, visual hallucinations Endocrine: Denies: fatigue, heat or cold intolerance Hematologic/Lymphatic: Denies: easy bruising, lymphadenopathy Allergic/Immunologic: Denies: urticaria, itchy eyes Psychiatry Exam - Constitutional Vitals: Temp Pulse Resp BP Pulse Ox 97.9 F 81 16 84/60 94 10/15/18 07:41 10/15/18 07:41 10/15/18 07:41 10/15/18 07:41 10/15/18 07:41 General appearance: age & developmentally appropriate, unkempt, disheveled - Musculoskeletal Gait: brisk Station: relaxed Strength & Tone: mild weakness - Psychiatric Patient Orientation: Yes Person, Yes Time, Yes Place Level of alertness: Alert Behavior: cooperative, tearful Psychomotor activity: Normal Eye Contact: Maintains Eye Contact Mood Description: Depressed Patient description of mood: "feels sad" Affect description: congruent with mood Speech Volume: Normal Speech pattern: normal rate, normal rhythm, normal tone, fluent, spontaneous Language & Vocabulary: consistent with education Thought Process: Intact, Linear Thought Content: No Suicidal ideation, No Homicidal ideation Perceptual Disturbances: No Auditory hallucinations, No Visual hallucinations Attention Span Ability: Capable of Focused Attention Memory Description: Grossly Intact Patient Reliability: Reliable Historian Fund of knowledge: Yes abstraction ability, Yes aware of current events Intelligence Estimate: Average Judgment: Fair Insight: Partial Results - Drug Levels and Toxicology Drug Levels and Toxicology: Drug Levels and Toxicity 10/14/18 10/14/18 13:40 13:54 Urine Opiates Screen Negative Acetaminophen < 10 L Ur Barbiturates Screen Negative Ur Phencyclidine Scrn Negative Ur Amphetamines Screen Negative U Benzodiazepines Scrn Positive H Urine Cocaine Screen Negative U Marijuana (THC) Screen Positive H Ethyl Alcohol < 10 - Labs Labs: Laboratory Last Values WBC 12.1 K/mcL (4.3-11.1) H 10/15/18 00:16 RBC 4.44 M/mcL (4.19-5.50) 10/15/18 00:16 Hgb 12.3 g/dL (12.9-16.9) L D 10/15/18 00:16 Hct 36.5 % (37.5-50.1) L 10/15/18 00:16 MCV 82.2 fL (83.0-100.0) L 10/15/18 00:16 MCH 27.7 pg (28.0-33.3) L 10/15/18 00:16 MCHC 33.7 g/dL (31.6-35.5) 10/15/18 00:16 RDW 14.0 % (11.5-14.5) 10/15/18 00:16 Plt Count 297 K/mcL (140-400) 10/15/18 00:16 MPV 9.9 fL (9.4-12.4) 10/15/18 00:16 Immature Gran % 2.2 % (0-4) 10/15/18 00:16 Seg Neutrophils % 55.2 % 10/15/18 00:16 32.1 % 10/15/18 00:16 9.9 % 10/15/18 00:16 0.4 % 10/15/18 00:16 0.2 % 10/15/18 00:16 6.7 K/mcL (1.6-8.9) 10/15/18 00:16 3.9 K/mcL (0.6-4.6) 10/15/18 00:16 1.2 K/mcL (0.0-1.3) 10/15/18 00:16 0.1 K/mcL (0.0-0.6) 10/15/18 00:16 0.0 K/mcL (0.0-0.2) 10/15/18 00:16 Present (Not Present) A 10/15/18 00:16 Normal (Normal) 10/15/18 00:16 1+ (Not Present) A 10/14/18 13:54 1064 ng/mLFEU (0-500) H 10/14/18 18:01 Sodium 133 mEq/L (136-145) L 10/15/18 00:16 Potassium 3.8 mEq/L (3.5-5.1) 10/15/18 00:16 Chloride 100 mEq/L (98-107) 10/15/18 00:16 Carbon Dioxide 24 mEq/L (23-29) 10/15/18 00:16 BUN 30 mg/dL (6-20) H 10/15/18 00:16 0.92 mg/dL (0.70-1.30) 10/15/18 00:16 Est GFR ( Amer) > 60 (> 60) 10/15/18 00:16 Est GFR (Non-Af Amer) > 60 (> 60) 10/15/18 00:16 33 (6-26) H 10/15/18 00:16 Glucose 121 mg/dL (70-105) H 10/15/18 00:16 283 (280-300) 10/15/18 00:16 Lactic Acid 1.1 mmol/L (0.5-2.2) 10/14/18 16:41 Calcium 7.9 mg/dL (8.6-10.3) L 10/15/18 00:16 Phosphorus 3.7 mg/dL (2.7-4.5) 10/15/18 00:16 Magnesium 2.4 mg/dL (1.6-2.6) 10/15/18 00:16 0.06 ng/mL (< 0.04) H* 10/15/18 06:08 B-Natriuretic Peptide 378 pg/mL (Less than 100) H 10/14/18 13:54 Triglycerides 103 mg/dL (< 150) 10/15/18 00:16 Cholesterol 181 mg/dL (< 200) 10/15/18 00:16 LDL Cholesterol, Calc 130 mg/dL (0-99) H 10/15/18 00:16 VLDL Cholesterol, Calc 21 mg/dL (< 31) 10/15/18 00:16 30 mg/dL (40-59) L 10/15/18 00:16 6.0 (0-4.9) H 10/15/18 00:16 Yellow (Yellow) 10/14/18 13:40 Clear (Clear) 10/14/18 13:40 5.5 pH Units (5.0-8.0) 10/14/18 13:40 Ur Specific Clarence 1.027 (1.010-1.025) H 10/14/18 13:40 Trace mg/dL (Neg-Trace) 10/14/18 13:40 Normal mg/dL (Normal) 10/14/18 13:40 Negative mg/dL (Negative) 10/14/18 13:40 Negative (Negative) 10/14/18 13:40 Negative (Negative) 10/14/18 13:40 Negative (Negative) 10/14/18 13:40 Normal mg/dL (Normal) 10/14/18 13:40 Ur Leukocyte Esterase Negative (Negative) 10/14/18 13:40 Salicylates < 2.5 mg/dL (15.0-30.0) L 10/14/18 13:54 Negative ng/mL (Atqyns=054) 10/14/18 13:40 Acetaminophen < 10 mcg/mL (10-20) L 10/14/18 13:54 Ur Barbiturates Screen Negative ng/mL (Xxthaw=255) 10/14/18 13:40 Ur Phencyclidine Scrn Negative ng/mL (Cutoff=25) 10/14/18 13:40 Ur Amphetamines Screen Negative ng/mL (Famhnp=4353) 10/14/18 13:40 U Benzodiazepines Scrn Positive ng/mL (Sjfayr=335) H 10/14/18 13:40 Negative ng/mL (Cutoff= 300) 10/14/18 13:40 U Marijuana (THC) Screen Positive ng/mL (Cutoff = 50) H 10/14/18 13:40 Ur Drug Screen Interp See Below 10/14/18 13:40 Ethyl Alcohol < 10 mg/dL (Less than 10) 10/14/18 13:54 - Impressions Impressions Chest X-Ray 10/14/18 13:34 IMPRESSION: No active cardiopulmonary disease D/ / Jamel Cardenas MD / Jamel Cardenas MD Interpreting Provider: Jamel Cardenas MD Abdomen/Pelvis CT 10/14/18 14:05 IMPRESSION: Large amount of stool throughout the length of the colon. Nonobstructing left nephrolithiasis. Patchy ground-glass opacity at the lung bases bilaterally, for which edema or pneumonitis are considerations. Mild induration of the subcutaneous fat of the left lower quadrant anterior abdominal wall, potentially related to contusion, localized inflammation, or cellulitis. Suggest correlation with physical exam. D/ / Donta Madera MD / Donta Madera MD Interpreting Provider: Donta aMdera MD Echocardiogram 10/14/18 16:32 Impressions: LVEF 20-25%. Severely dilated left ventricle. Severe global and segmental left ventricular systolic dysfunction. Mild left ventricular diastolic dysfunction. Normal right ventricular structure and function. Mildly dilated left atrium. Mild-moderate mitral regurgitation. Unable to estimate RVSP due to lack of TR jet. Recommend Cardiology consult. Left Ventricular Wall Motion: Rest Echo Findings The apex, apical inferior, apical anterior, mid anterior, basal anterior, apical septal, mid inferior septal, basal inferior septal, apical lateral, mid anterior lateral, basal anterior lateral, mid anterior septal, mid inferior lateral, basal anterior septal and basal inferior lateral ortiz were hypokinetic. The mid inferior and basal inferior ortiz were akinetic. Findings: Study Quality * Technically adequate exam. ECG Findings * Normal sinus rhythm. Left Ventricle * LVEF 20-25%. * Severely dilated left ventricle. * Mild eccentricic left ventricular hypertrophy. * Severe global and segmental left ventricular systolic dysfunction. * Mild left ventricular diastolic dysfunction. * There is no LV thrombus. * Definity echo contrast was used. Right Ventricle * Normal right ventricular structure and function. Left Atrium * Mildly dilated left atrium. Right Atrium * Normal right atrial size. Interatrial Septum * Interatrial septum not well evaluated. Aortic Valve * Aortic valve not well visualized. * No aortic regurgitation. * Normal aortic valve function. Mitral Valve * Normal mitral valve structure. * No mitral stenosis. * Mild-moderate mitral regurgitation. Tricuspid Valve * Normal tricuspid valve structure. * No tricuspid stenosis. * Trace tricuspid regurgitation. * Unable to estimate RVSP due to lack of TR jet. * Estimated RA pressure is 3 mmHg. Pulmonic Valve * Pulmonic valve is not well visualized. * No pulmonic stenosis. * No pulmonic regurgitation. Aorta * Normally sized aortic root. Pericardium * The pericardium appears normal. IVC * The IVC is not dilated. * > 50% respiratory change Device lead * A device lead was visualized in the right atrium and right ventricle. Chest CT 10/14/18 17:04 IMPRESSION: Patchy ground-glass infiltrate seen in both the left and right lungs may be secondary to early or atypical pneumonia. D/ / 10/14/2018 18:02:14 Shorty Acevedo MD / [facility] Interpreting Provider: Shorty Acevedo MD Consult Discharge Plan - Plan Referrals: NONE,PCP [Primary Care Provider] - - Attending Attestation The history, physical exam, and medical decision making was performed by the medical student either while I was physically present and actively involved or I personally re-performed the exam and medical decision making. I have verified the accuracy of the medical student's documentation with regards to the history, physical exam findings, and medical decision making. Patient would like to be in a [facility] hospital as he says he doesn't want to go home to his sister's filthy house but currently is not meeting inpatient criteria as he is not actively suicidal or homicidal. We will continue to follow t0 see if this changes.
--- NOTE | 2018-10-15 10:00 | Electrocardiograph Report ---
[address] [address] Test Date: 2018-10-14 Pat Name: Brando Tang Department: EXAM21 Room: 2N4 Gender: M Director Of Religious Activities: : 1975 Requested By: Montez Hummel Order Number: [id number] Reading MD: Onur Hernandez Measurements Intervals [place] Rate: 110 P: 49 KS: 127 QRS: 80 QRSD: 101 T: 205 QT: 341 QTc: 462 Interpretive Statements Sinus tachycardia Probable left atrial enlargement Inferolateral t wave changes Electronically Signed On 10-15-2018 9:58:40 EDT by Onur Hernandez
--- NOTE | 2018-10-15 10:26 | Electrocardiograph Report ---
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
--- NOTE | 2018-10-15 12:29 | Cardiology Consult Note ---
Date of Encounter: 10/15/18 Time of Encounter: 10:00 Assessment and Plan (1) Ischemic cardiomyopathy Current Visit: Yes Status: Acute Per cardiology: -Known ischemic cardiomyopathy. Has AICD -TTE with LVEF 20%, global hypokinesis with segmental variations. -Chest CT with pneumonia, BNP mildly elevated. -On IV lasix, laying flat on room air. Euvolemic on exam. -Had been on BB and sinan inhibitor in outpateint setting, now on hold due to hypotension. -Will resume home lasix, stop IV lasix. -Recommend addition of of BB and sinan prior to discharge when BP will allow. 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 States he lives in [facility] and would like to follow with cardiology there. (2) CAD (coronary artery disease) Current Visit: Yes Status: Chronic Per cardiology: -Known CAD, patient reports 5 previous stents. -Reports LHC 1 month ago without intervention. -On asa, statin, plavix. NOt on BB due to hypotension. -Will obtain LHC and TTE records. Qualifiers: Coronary Disease-Associated Artery/Lesion type: unspecified vessel or lesion type [place] vs. transplanted heart: unspecified whether [place] or transplanted heart Associated angina: angina presence unspecified Qualified Code(s): I25.10 - Atherosclerotic heart disease of [place] coronary artery without angina pectoris (3) Elevated troponin Current Visit: Yes Status: Acute Per cardiology: -Mild troponin elevation in the setting of PNA. -Denies angina. -ECG with non-specific ST and T wave abnormalities. -TTE with LVEF 20%, known. -Reports LHC 1 month ago without intervention. -Demand ischemia, no cardiac rehab consult warranted. -Will obtain records from recent C. Discussion w patient/family: The assessment and plan as outlined above was discussed with the patient and/or family members who expressed understanding and agreement. All questions were answered. Thank you for involving us in the care of your patient. Please call with any questions. Discussed and reviewed with . History of Present Illness Consult date: 10/15/18 Requesting physician: Milton Hughes Consult reason: CHF Chief complaint: shortness of breath History of present illness: Mr. Tang is a 43 year old male with a relevant past medical history of [place], CAD s/p PCI, ischemic cardiomyopathy, AICD, CHF, HTN, depression, who presented to [facility] with complaints of shortness of breath and cough. Pateint reports he had been treated for PNA out several outside hospitals, however he sattes he was unhappy with care and signed out AMA from 2 facilities. Patient states he then came to [facility] by recommendations from his girlfriend. Patient states shortness of breath is improved today. Denies angina. States he has had some throat burning with eating. Denies edema. Past Med Surg Social Fam HX - Past Medical History Attestation: Yes The following information was validated with the patient. Source: patient Medical history: cardiomyopathy, CHF, coronary artery disease, hypertension, myocardial infarction Psychiatric history: depression, previous psychiatric hospitalization - Past Surgical History Surgical History: pacemaker/AICD - Social History Smoking Status: Current some day smoker Smokeless Tobacco Status: No Alcohol use: occasionally Drug use: marijuana Medications and Allergies Aspirin Enteric Coated [Aspirin EC] 81 mg PO DAILY 10/14/18 [History] Atorvastatin [Lipitor] 40 mg PO HS 10/14/18 [History] Benzonatate [Tessalon] 200 mg PO TID PRN 10/14/18 [History] Carvedilol 3.125 mg PO BID 10/14/18 [History] Clopidogrel [Plavix] 75 mg PO DAILY 10/14/18 [History] Doxycycline Hyclate 100 mg PO BID 10/14/18 [History] Furosemide [Lasix] 20 mg PO DAILY 10/14/18 [History] Lisinopril 2.5 mg PO DAILY 10/14/18 [History] Metoprolol XL (24 HR) Succ [Toprol Xl] 25 mg PO DAILY 10/14/18 [History] Nitroglycerin 0.4 mg SL AD PRN 10/14/18 [History] Nystatin [Nystatin Suspension] 500,000 unit PO QID 10/14/18 [History] Phenol [Chloraseptic] 2 spray MM 3-4XD PRN 10/14/18 [History] Potassium Chloride [Klor-Con 10] 10 meq PO DAILY 10/14/18 [History] Allergy/AdvReac Type Severity Reaction Status Date / Time ibuprofen [From Motrin] Allergy See Verified 10/14/18 15:05 Comments tramadol Allergy See Verified 10/14/18 15:05 Comments IVP DYE AdvReac Itching Uncoded 10/14/18 15:05 All Systems Review: The remainder of the systems were reviewed and are negative - Cardiovascular Cardiovascular: as per HPI, dyspnea at rest, dyspnea on exertion Physical Examination Vital Signs Temperature 98.1 F 10/14/18 13:24 Pulse Rate 110 10/14/18 13:24 Respiratory Rate 20 10/14/18 13:24 Blood Pressure 101/60 10/14/18 13:24 O2 Sat by Pulse Oximetry 97 10/14/18 13:24 Temperature 97.7 F 10/15/18 12:23 Pulse Rate 91 10/15/18 12:23 Respiratory Rate 16 10/15/18 12:23 Blood Pressure 82/57 10/15/18 12:23 O2 Sat by Pulse Oximetry 95 10/15/18 12:23 Oxygen Delivery Oxygen Delivery Room Air General: Conversant, No Apparent Distress HEENT: Atraumatic, Normocephaly, Mucus Membranes Moist Neck: No JVD, Normal carotid pulses Cardiac: Reg Rate and Rhythm, Normal S1 and S2, No Murmur Lungs: Normal Breath Sounds, No Wheeze, Rales, Rhonchi Neuro: Alert and responsive, No focal deficits noted Abdomen: Soft, Non-Tender Skin: No rashes noted on visualized skin Musculoskeletal: No Chest Wall Tenderness Extremities: No Clubbing, No Cyanosis, No Edema, Normal Pulses Results 10/15/18 00:16 10/15/18 00:16 Lab Results Impressions Chest X-Ray 10/14/18 13:34 IMPRESSION: No active cardiopulmonary disease D/ / Jamel Cardenas MD / Jamel Cardenas MD Interpreting Provider: Jamel Cardenas MD Abdomen/Pelvis CT 10/14/18 14:05 IMPRESSION: Large amount of stool throughout the length of the colon. Nonobstructing left nephrolithiasis. Patchy ground-glass opacity at the lung bases bilaterally, for which edema or pneumonitis are considerations. Mild induration of the subcutaneous fat of the left lower quadrant anterior abdominal wall, potentially related to contusion, localized inflammation, or cellulitis. Suggest correlation with physical exam. D/ / Donta Madera MD / Donta Madera MD Interpreting Provider: Donta Madera MD Echocardiogram 10/14/18 16:32 Impressions: LVEF 20-25%. Severely dilated left ventricle. Severe global and segmental left ventricular systolic dysfunction. Mild left ventricular diastolic dysfunction. Normal right ventricular structure and function. Mildly dilated left atrium. Mild-moderate mitral regurgitation. Unable to estimate RVSP due to lack of TR jet. Recommend Cardiology consult. Left Ventricular Wall Motion: Rest Echo Findings The apex, apical inferior, apical anterior, mid anterior, basal anterior, apical septal, mid inferior septal, basal inferior septal, apical lateral, mid anterior lateral, basal anterior lateral, mid anterior septal, mid inferior lateral, basal anterior septal and basal inferior lateral ortiz were hypokinetic. The mid inferior and basal inferior ortiz were akinetic. Findings: Study Quality * Technically adequate exam. ECG Findings * Normal sinus rhythm. Left Ventricle * LVEF 20-25%. * Severely dilated left ventricle. * Mild eccentricic left ventricular hypertrophy. * Severe global and segmental left ventricular systolic dysfunction. * Mild left ventricular diastolic dysfunction. * There is no LV thrombus. * Definity echo contrast was used. Right Ventricle * Normal right ventricular structure and function. Left Atrium * Mildly dilated left atrium. Right Atrium * Normal right atrial size. Interatrial Septum * Interatrial septum not well evaluated. Aortic Valve * Aortic valve not well visualized. * No aortic regurgitation. * Normal aortic valve function. Mitral Valve * Normal mitral valve structure. * No mitral stenosis. * Mild-moderate mitral regurgitation. Tricuspid Valve * Normal tricuspid valve structure. * No tricuspid stenosis. * Trace tricuspid regurgitation. * Unable to estimate RVSP due to lack of TR jet. * Estimated RA pressure is 3 mmHg. Pulmonic Valve * Pulmonic valve is not well visualized. * No pulmonic stenosis. * No pulmonic regurgitation. Aorta * Normally sized aortic root. Pericardium * The pericardium appears normal. IVC * The IVC is not dilated. * > 50% respiratory change Device lead * A device lead was visualized in the right atrium and right ventricle. Chest CT 10/14/18 17:04 IMPRESSION: Patchy ground-glass infiltrate seen in both the left and right lungs may be secondary to early or atypical pneumonia. D/ / 10/14/2018 18:02:14 Shorty Acevedo MD / stephania Interpreting Provider: Shorty Acevedo MD Active Medications Hydrocodone Bitart/Acetaminophen ([place] 5-325 Mg) 1 tab PO Q4HR PRN PRN Reason: Pain Stop: 04/15/19 17:05 Last Admin: 10/15/18 09:18 Dose: 1 tab Documented by: Aspirin (Aspirin Ec) 81 mg PO DAILY [facility] Stop: 04/16/19 09:01 Last Admin: 10/15/18 09:18 Dose: 81 mg Documented by: Atorvastatin Calcium (Lipitor) 40 mg PO HS [facility] Stop: 04/15/19 21:01 Last Admin: 10/14/18 22:41 Dose: 40 mg Documented by: Clopidogrel Bisulfate (Plavix) 75 mg PO DAILY [facility] Stop: 04/16/19 09:01 Last Admin: 10/15/18 09:18 Dose: 75 mg Documented by: Furosemide (Lasix) 20 mg IVP DAILY [facility] Stop: 04/16/19 09:01 Last Admin: 10/15/18 09:19 Dose: 20 mg Documented by: Heparin Sodium (Porcine) (Heparin) 5,000 unit SQ Q8HCO [facility] Stop: 04/15/19 22:01 Last Admin: 10/15/18 06:11 Dose: Not Given Documented by: Piperacillin Sod/Tazobactam (Sod 3.375 gm/ Sodium Chloride) 100 mls @ 25 mls/hr IVPB Q8H [facility] Stop: 04/15/19 18:01 Last Admin: 10/15/18 09:21 Dose: 25 mls/hr Documented by: Levofloxacin/Dextrose (Levaquin Premix 750mg/150 Ml) 750 mg in 150 mls @ 100 mls/hr IVPB DAILY [facility]; Protocol Stop: 04/16/19 09:01 Last Admin: 10/15/18 09:20 Dose: 100 mls/hr Documented by: Vancomycin HCl 1,000 mg/ (Sodium Chloride) 250 mls @ 167 mls/hr IVPB Q12H [facility]; Protocol Stop: 04/16/19 08:01 Last Admin: 10/15/18 09:23 Dose: 167 mls/hr Documented by: Lactulose (Lactulose) 20 gm PO BID [facility] Stop: 04/15/19 21:01 Last Admin: 10/15/18 09:19 Dose: 20 gm Documented by: Levalbuterol HCl (Xopenex) 0.63 mg IH [id number] [facility] Stop: 04/15/19 22:01 Last Admin: 10/15/18 11:14 Dose: 0.63 mg Documented by: Naloxone HCl (Narcan) 0.4 mg IVP Q2MPRN PRN PRN Reason: SEE COMMENTS Stop: 04/15/19 16:30 Nitroglycerin (Nitroglycerin) 0.4 mg SL Q5MPRN PRN PRN Reason: Chest Pain Stop: 04/15/19 16:33 Pantoprazole Sodium (Protonix) 40 mg IVP DAILY [facility] Stop: 04/15/19 17:16 Last Admin: 10/15/18 09:19 Dose: 40 mg Documented by: Sucralfate (Carafate) 1 gm PO QIDAC [facility] Stop: 04/15/19 22:01 Last Admin: 10/15/18 09:18 Dose: 1 gm Documented by: Laboratory Tests 10/14/18 10/14/18 10/14/18 13:40 13:54 13:54 WBC Hgb Creatinine Troponin I 0.05 H* B-Natriuretic Peptide 378 H U Benzodiazepines Scrn Positive H U Marijuana (THC) Screen Positive H 10/14/18 10/15/18 10/15/18 18:01 00:16 00:16 WBC 12.1 H Hgb 12.3 L D Creatinine Troponin I 0.05 H* 0.06 H* B-Natriuretic Peptide U Benzodiazepines Scrn U Marijuana (THC) Screen 10/15/18 10/15/18 00:16 06:08 WBC Hgb Creatinine 0.92 Troponin I 0.06 H* B-Natriuretic Peptide U Benzodiazepines Scrn U Marijuana (THC) Screen - Imaging and Cardiology Chest Xray: report reviewed Echo: report reviewed - EKG Interpretation EKG results cardiology: personally reviewed (ECG with SR, HR 88. Non-specific ST and T wave abnormalities known.), other (Telemetry reviewed with average HR previous 12 hours noted to be 88, SR. PVCs, PACs. One non-sustained VT noted, 4 beats.) Consult Discharge Plan - Plan Referrals: NONE,PCP [Primary Care Provider] -
[2018-10-15] MEDS: Ranolazine 500 MG TAB.ER.12H PO SCH (21:54)
[2018-10-16] MEDS: Piperacillin/Tazobactam 3.375 GM in 0.9 % Sodium Chloride Mini Bag 100 ML IVPB SCH ×2 (02:05→09:44)
[2018-10-16] MEDS: Levalbuterol Neb 0.63 MG/3 ML IH SCH ×4 (03:51→21:52)
[2018-10-16] MEDS: *HR* Heparin 5,000 UNIT/ML VIAL SQ SCH ×3 (05:26→21:33)
[2018-10-16 05:29] LABS: Basophils % 0.3 %; Eosinophils # 0.1 K/mcL (0.0-0.6); Eosinophils % 0.9 %; Hematocrit 33.8 % (37.5-50.1); Hemoglobin 11.6 g/dL (12.9-16.9); Immature Granulocytes % 1.2 % (0-4); Lymphocytes # 2.9 K/mcL (0.6-4.6); Lymphocytes % 32.4 %; Mean Corpuscular HGB Conc 34.3 g/dL (31.6-35.5); Mean Corpuscular Volume 81.4 fL (83.0-100.0); Mean Platelet Volume 9.8 fL (9.4-12.4); Monocytes # 0.8 K/mcL (0.0-1.3); Monocytes % 9.4 %; Platelet Count 285 K/mcL (140-400); Red Blood Count 4.15 M/mcL (4.19-5.50); Red Cell Distribution Width 13.9 % (11.5-14.5); Segmented Neutrophils % 55.8 %
[2018-10-16 07:20] LABS: BUN/Creatinine Ratio 24 (6-26); Blood Urea Nitrogen 23 mg/dL (6-20); Calcium 8.6 mg/dL (8.6-10.3); Carbon Dioxide 26 mEq/L (23-29); Chloride 100 mEq/L (98-107); Glucose 123 mg/dL (70-105); Magnesium 2.3 mg/dL (1.6-2.6); Osmolality,Calculated 283 (280-300); Phosphorous 3.1 mg/dL (2.7-4.5); Potassium 3.9 mEq/L (3.5-5.1); Sodium 134 mEq/L (136-145); eGFR For Non-African Americans > 60 (> 60)
--- NOTE | 2018-10-16 07:57 | Event Note ---
Date of Encounter: 10/16/18 Time of Encounter: 07:56 - Cardiology Event Note Known ICM, LVEF 20%. Recommend BB and sinan inhibitor prior to discharge, if BP will tolerate. Euvolemic on exam. Mildly elevated troponins, demand ischemia. Cardiology will sign off. Patient lives in [place], [place] and wishes to follow w [facility] cardiology there. Recommend close outpatient follow up.
[2018-10-16] MEDS: Aspirin Enteric Coated 81 MG Tablet PO SCH (09:40)
[2018-10-16] MEDS: Sucralfate 1 GM TABLET PO SCH ×4 (09:40→21:33)
[2018-10-16] MEDS: Lactulose Oral Soln 20 GM/30 ML UDC PO SCH ×2 (09:40→20:04)
[2018-10-16] MEDS: Pantoprazole 40 MG VIAL IVP SCH (09:40)
[2018-10-16] MEDS: Ranolazine 500 MG TAB.ER.12H PO SCH ×2 (09:40→20:04)
[2018-10-16] MEDS: Furosemide 20 MG TABLET PO SCH (09:40)
[2018-10-16] MEDS: Levofloxacin 750 MG/150 ML 750 MG/150 ML BAG IVPB SCH (09:41)
--- NOTE | 2018-10-16 11:42 | Internal Med Progress Note ---
Hospitalist Progress Note - Encounter Date of Encounter: 10/16/18 Time of Encounter: 11:41 - Subjective Interval History: I have seen and evaluated the patient at bedside. patient reports feeling weak, denies chest pain or shortness of breath. reports having one episode of non- bilious, non-bloody vomiting today morning. denies abdominal pain or loose sto ol. - Exam Vitals: Temp Pulse Resp BP Pulse Ox 98.1 F 87 18 89/57 97 10/16/18 07:23 10/16/18 07:23 10/16/18 10:18 10/16/18 07:23 10/16/18 10:18 Exam: Vitals: Reviewed General: Alert and oriented x4. In mild distress due to generalized weakness Cardiovascular: RRR, normal S1 & S2, no rubs, murmurs or gallops. Lungs: CTA b/l, no wheezes or crackles. Abdomen: Soft, non-tender, no rigidity. NABS in all 4 quadrants Extremities: No edema Neurological: No focal neurological deficits Rest of the physical exam is non contributory - Assessment and Plan (1) CHF (congestive heart failure) Current Visit: Yes Status: Chronic Assessment and Plan: patient is euvolemic. in no distress. chest clear to auscultation. on furosemide with holding parameter for SBP <100 BB and ACEs held due to hypotension continue fluid restriction to 1.5 litters a day daily weight and strict intake and output (2) Pneumonia Current Visit: Yes Status: Acute Assessment and Plan: will narrow antibiotics down. sputum culture: No growth, pending final report discontinue piperacillin/tazobactam and vancomycin continue levofloxacin 750mg/PO daily. (3) Depression Current Visit: Yes Status: Chronic Assessment and Plan: psychiatry evaluated the patient and offered him to be started on some mood stabilizing medication but the patient refused. he stated he prefers counseling instead of pills (4) Generalized weakness Current Visit: Yes Status: Acute Assessment and Plan: Daily PT/OT (5) CAD (coronary artery disease) Current Visit: Yes Status: Chronic Assessment and Plan: Continue dual antiplatelet therapy with aspirin and Plavix. (6) Gastritis Current Visit: Yes Status: Acute Assessment and Plan: Patient is on pantoprazole, and sulcrafate. (7) Esophagitis Current Visit: Yes Status: Acute Assessment and Plan: plan of care as above (8) Constipation Current Visit: Yes Status: Chronic Assessment and Plan: Continue lactulose 20 mg by mouth twice a day when necessary (9) Elevated troponin Current Visit: Yes Status: Ruled-out (10) HLD (hyperlipidemia) Current Visit: Yes Status: Chronic Assessment and Plan: On atorvastatin 40 mg by mouth at bedtime (11) Hypotension Current Visit: Yes Status: Acute Assessment and Plan: BP running in the low 90s and high 80s SBP. with MAP >65. patient asymptomatic. no sign of an active infection will give the patient 250 mls of NS x1. and will continue monitoring Hold furosemide. DVT Prophylaxis: Patient is on heparin subcutaneous. - Summary of Assessment and Plan Summary of Assessment and Plan: Patient to remain in the hospital due to severe CHF, and hypotension. - Time Spent with Patient Total time spent is greater than 50% in coordination of care (as documented) at patient's floor/unit and/or counseling patient: Greater than 35 minutes (40) Plan of Care Discussed with: patient (and the nurse.) Internal Medicine: Result - Labs CBC & Chem 7: 10/16/18 04:41 10/16/18 04:41 Labs: Short CBC 10/16/18 Range/Units 04:41 WBC 8.9 (4.3-11.1) K/mcL Hgb 11.6 L (12.9-16.9) g/dL Hct 33.8 L (37.5-50.1) % Plt Count 285 (140-400) K/mcL Neutrophils # 5.0 (1.6-8.9) K/mcL BMP 10/16/18 04:41 Sodium 134 L Potassium 3.9 Chloride 100 Carbon Dioxide 26 BUN 23 H Creatinine 0.96 Glucose 123 H Calcium 8.6 - ABG Interpretation ABG results: PT/INR, D-dimer 1064 ng/mLFEU (0-500) H 10/14/18 18:01 Consult Discharge Plan - Plan Referrals: NONE,PCP [Primary Care Provider] - (1) CHF (congestive heart failure) Qualifiers: Heart failure type: systolic Heart failure chronicity: acute on chronic Qualified Code(s): I50.23 - Acute on chronic systolic (congestive) heart failure (2) Pneumonia Qualifiers: Pneumonia type: due to unspecified organism Laterality: bilateral Lung location: unspecified part of lung Qualified Code(s): J18.9 - Pneumonia, unspecified organism (3) Depression Qualifiers: Depression Type: unspecified Qualified Code(s): F32.9 - Major depressive disorder, single episode, unspecified (5) CAD (coronary artery disease) Qualifiers: Coronary Disease-Associated Artery/Lesion type: unspecified vessel or lesion type [place] vs. transplanted heart: unspecified whether [place] or transplanted heart Associated angina: angina presence unspecified Qualified Code(s): I25.10 - Atherosclerotic heart disease of [place] coronary artery without angina pectoris (6) Gastritis Qualifiers: Gastritis type: unspecified gastritis Chronicity: acute Gastritis bleeding: without bleeding Qualified Code(s): K29.00 - Acute gastritis without bleeding (8) Constipation Qualifiers: Constipation type: unspecified constipation type Qualified Code(s): K59.00 - Constipation, unspecified (10) HLD (hyperlipidemia) Qualifiers: Hyperlipidemia type: unspecified Qualified Code(s): E78.5 - Hyperlipidemia, unspecified (11) Hypotension Qualifiers: Hypotension type: unspecified hypotension type Qualified Code(s): I95.9 - Hypotension, unspecified
[2018-10-16] MEDS: 0.9 % Sodium Chloride 250 ML IVC SCH ×2 (12:22→20:06)
[2018-10-16] MEDS ORDERED: 0.9 % Sodium Chloride 250 ML ONE (12:45)
[2018-10-16] MEDS: *HR* HYDROcodone/Acet 5/325 mg TABLET PO PRN ×2 (13:14→18:41)
[2018-10-16] MEDS ORDERED: Acetaminophen IV 500 MG/50 ML INFUS..BTL IVPB ONE (23:15)
[2018-10-16 23:46] LABS: Basophils % 0.3 %; Eosinophils # 0.1 K/mcL (0.0-0.6); Hematocrit 34.4 % (37.5-50.1); Hemoglobin 11.2 g/dL (12.9-16.9); Immature Granulocytes % 0.9 % (0-4); Lymphocytes # 2.3 K/mcL (0.6-4.6); Lymphocytes % 29.8 %; Mean Corpuscular HGB Conc 32.6 g/dL (31.6-35.5); Mean Corpuscular Hemoglobin 27.2 pg (28.0-33.3); Mean Corpuscular Volume 83.5 fL (83.0-100.0); Mean Platelet Volume 9.7 fL (9.4-12.4); Monocytes # 0.7 K/mcL (0.0-1.3); Monocytes % 9.6 %; Neutrophils # 4.5 K/mcL (1.6-8.9); Platelet Count 251 K/mcL (140-400); Red Blood Count 4.12 M/mcL (4.19-5.50); Red Cell Distribution Width 14.2 % (11.5-14.5); Segmented Neutrophils % 58.4 %
[2018-10-17 02:26] LABS: Basophils % 0.4 %; Eosinophils # 0.1 K/mcL (0.0-0.6); Eosinophils % 0.8 %; Hemoglobin 11.3 g/dL (12.9-16.9); Immature Granulocytes % 0.8 % (0-4); Lymphocytes # 2.3 K/mcL (0.6-4.6); Lymphocytes % 27.9 %; Mean Corpuscular HGB Conc 33.2 g/dL (31.6-35.5); Mean Corpuscular Hemoglobin 27.7 pg (28.0-33.3); Mean Corpuscular Volume 83.3 fL (83.0-100.0); Mean Platelet Volume 9.9 fL (9.4-12.4); Monocytes # 0.8 K/mcL (0.0-1.3); Monocytes % 9.3 %; Neutrophils # 5.1 K/mcL (1.6-8.9); Platelet Count 249 K/mcL (140-400); Red Blood Count 4.08 M/mcL (4.19-5.50); Red Cell Distribution Width 14.1 % (11.5-14.5); Segmented Neutrophils % 60.8 %
[2018-10-17] MEDS: *HR* HYDROcodone/Acet 5/325 mg TABLET PO PRN ×4 (02:35→21:30)
[2018-10-17 02:45] LABS: BUN/Creatinine Ratio 24 (6-26); Blood Urea Nitrogen 20 mg/dL (6-20); Calcium 8.1 mg/dL (8.6-10.3); Carbon Dioxide 26 mEq/L (23-29); Chloride 100 mEq/L (98-107); Glucose 167 mg/dL (70-105); Magnesium 2.1 mg/dL (1.6-2.6); Osmolality,Calculated 286 (280-300); Potassium 3.7 mEq/L (3.5-5.1); Sodium 135 mEq/L (136-145); eGFR For Non-African Americans > 60 (> 60)
[2018-10-17] MEDS: Levalbuterol Neb 0.63 MG/3 ML IH SCH ×4 (03:49→22:10)
[2018-10-17] MEDS: *HR* Heparin 5,000 UNIT/ML VIAL SQ SCH ×3 (05:33→21:31)
[2018-10-17] MEDS ORDERED: Acetaminophen IV 500 MG/50 ML INFUS..BTL IVPB ONE (05:36)
[2018-10-17] MEDS: Sucralfate 1 GM TABLET PO SCH ×4 (08:21→21:30)
[2018-10-17 08:31] LABS: Hemoglobin 11.2 g/dL (12.9-16.9)
[2018-10-17] MEDS: Lactulose Oral Soln 20 GM/30 ML UDC PO SCH ×2 (09:19→20:18)
[2018-10-17] MEDS: Aspirin Enteric Coated 81 MG Tablet PO SCH (09:19)
[2018-10-17] MEDS: Pantoprazole 40 MG VIAL IVP SCH (09:19)
[2018-10-17] MEDS: Furosemide 20 MG TABLET PO SCH (09:19)
[2018-10-17] MEDS: levoFLOXacin 750 MG TABLET PO SCH (09:19)
[2018-10-17] MEDS: Ranolazine 500 MG TAB.ER.12H PO SCH ×2 (12:19→20:18)
[2018-10-17 14:20] LABS: Hematocrit 33.5 % (37.5-50.1); Hemoglobin 11.3 g/dL (12.9-16.9)
--- NOTE | 2018-10-17 15:41 | Internal Med Progress Note ---
Hospitalist Progress Note - Encounter Date of Encounter: 10/17/18 Time of Encounter: 15:39 - Subjective Interval History: I have seen and evaluated the patient at bedside. he reports feeling well today. has tolerated well his diet, but still reports feeling weak. denies chest pain or light headedness. reports having a BM last night and seeing some streaks of blood in it. H&H has remain stable. - Exam Vitals: Temp Pulse Resp BP Pulse Ox 98.5 F 81 14 86/51 99 10/17/18 06:45 10/17/18 06:45 10/17/18 06:45 10/17/18 06:45 10/17/18 06:45 Exam: Vitals: Reviewed General: Alert and oriented x4. In no distress Cardiovascular: RRR, normal S1 & S2, no rubs, murmurs or gallops. Lungs: CTA b/l, no wheezes or crackles. Abdomen: Soft, non-tender, no rigidity. NABS in all 4 quadrants Extremities: No edema Neurological: No focal neurological deficits Rest of the physical exam is non contributory - Assessment and Plan (1) CHF (congestive heart failure) Current Visit: Yes Status: Chronic Assessment and Plan: patient is euvolemic. on furosemide with holding parameter for SBP <100 BB and ACEs held due to low BP continue fluid restriction to 1.5 litters a day daily weight and strict intake and output (2) Pneumonia Current Visit: Yes Status: Acute Assessment and Plan: sputum culture: No growth, pending final report Urine for atypical negative. Levofloxacin levofloxacin 750mg/PO daily. (3) Depression Current Visit: Yes Status: Chronic Assessment and Plan: psychiatry evaluated the patient and offered him to be started on some mood stabilizing medication but the patient refused. he stated he prefers counseling instead of pills (4) Generalized weakness Current Visit: Yes Status: Acute Assessment and Plan: Daily PT/OT. (5) CAD (coronary artery disease) Current Visit: Yes Status: Chronic Assessment and Plan: Continue dual antiplatelet therapy with aspirin and Plavix. (6) Gastritis Current Visit: Yes Status: Acute Assessment and Plan: On pantoprazole, and sulcrafate. (7) Esophagitis Current Visit: Yes Status: Acute Assessment and Plan: plan of care as above (8) Constipation Current Visit: Yes Status: Chronic Assessment and Plan: patient had a BM last night. on lactulose 20gm/PO BID (9) Elevated troponin Current Visit: Yes Status: Ruled-out (10) HLD (hyperlipidemia) Current Visit: Yes Status: Chronic Assessment and Plan: On atorvastatin 40 mg by mouth at bedtime (11) Hypotension Current Visit: Yes Status: Acute Assessment and Plan: patient asymptomatic midodrine 5mg/PO once ordered. DVT Prophylaxis: On heparin subq. - Summary of Assessment and Plan Summary of Assessment and Plan: Patient to remain in the hospital due to generalized weakness, hypotension. potential discharge tomorrow. - Time Spent with Patient Total time spent is greater than 50% in coordination of care (as documented) at patient's floor/unit and/or counseling patient: Greater than 35 minutes (40) Plan of Care Discussed with: patient (and the nurse.) Internal Medicine: Result - Labs CBC & Chem 7: 10/17/18 14:00 10/17/18 01:40 Labs: Short CBC 10/16/18 10/17/18 10/17/18 Range/Units 23:30 01:40 07:59 WBC 7.7 8.4 (4.3-11.1) K/mcL Hgb 11.2 L 11.3 L 11.2 L (12.9-16.9) g/dL Hct 34.4 L 34.0 L 34.0 L (37.5-50.1) % Plt Count 251 249 (140-400) K/mcL Neutrophils # 4.5 5.1 (1.6-8.9) K/mcL 10/17/18 Range/Units 14:00 WBC (4.3-11.1) K/mcL Hgb 11.3 L (12.9-16.9) g/dL Hct 33.5 L (37.5-50.1) % Plt Count (140-400) K/mcL Neutrophils # (1.6-8.9) K/mcL BMP 10/17/18 01:40 Sodium 135 L Potassium 3.7 Chloride 100 Carbon Dioxide 26 BUN 20 Creatinine 0.85 Glucose 167 H Calcium 8.1 L - ABG Interpretation ABG results: PT/INR, D-dimer 1064 ng/mLFEU (0-500) H 10/14/18 18:01 Consult Discharge Plan - Plan Referrals: NONE,PCP [Primary Care Provider] - (1) CHF (congestive heart failure) Qualifiers: Heart failure type: systolic Heart failure chronicity: acute on chronic Qualified Code(s): I50.23 - Acute on chronic systolic (congestive) heart failure (2) Pneumonia Qualifiers: Pneumonia type: due to unspecified organism Laterality: bilateral Lung location: unspecified part of lung Qualified Code(s): J18.9 - Pneumonia, unspecified organism (3) Depression Qualifiers: Depression Type: unspecified Qualified Code(s): F32.9 - Major depressive disorder, single episode, unspecified (5) CAD (coronary artery disease) Qualifiers: Coronary Disease-Associated Artery/Lesion type: unspecified vessel or lesion type [place] vs. transplanted heart: unspecified whether [place] or transplanted heart Associated angina: angina presence unspecified Qualified Code(s): I25.10 - Atherosclerotic heart disease of [place] coronary artery without angina pectoris (6) Gastritis Qualifiers: Gastritis type: unspecified gastritis Chronicity: acute Gastritis bleeding: without bleeding Qualified Code(s): K29.00 - Acute gastritis without bleeding (8) Constipation Qualifiers: Constipation type: unspecified constipation type Qualified Code(s): K59.00 - Constipation, unspecified (10) HLD (hyperlipidemia) Qualifiers: Hyperlipidemia type: unspecified Qualified Code(s): E78.5 - Hyperlipidemia, unspecified (11) Hypotension Qualifiers: Hypotension type: unspecified hypotension type Qualified Code(s): I95.9 - Hyp otension, unspecified
[2018-10-18] MEDS: *HR* HYDROcodone/Acet 5/325 mg TABLET PO PRN ×3 (02:03→13:51)
[2018-10-18] MEDS: *HR* Heparin 5,000 UNIT/ML VIAL SQ SCH (05:11)
[2018-10-18] MEDS: Levalbuterol Neb 0.63 MG/3 ML IH SCH ×2 (06:51→10:32)
[2018-10-18 07:04] LABS: Basophils % 0.2 %; Eosinophils # 0.1 K/mcL (0.0-0.6); Eosinophils % 1.3 %; Hematocrit 32.9 % (37.5-50.1); Immature Granulocytes % 0.6 % (0-4); Lymphocytes # 2.9 K/mcL (0.6-4.6); Lymphocytes % 35.1 %; Mean Corpuscular HGB Conc 33.4 g/dL (31.6-35.5); Mean Corpuscular Volume 83.7 fL (83.0-100.0); Mean Platelet Volume 10.1 fL (9.4-12.4); Monocytes # 0.8 K/mcL (0.0-1.3); Monocytes % 9.1 %; Neutrophils # 4.5 K/mcL (1.6-8.9); Platelet Count 251 K/mcL (140-400); Red Blood Count 3.93 M/mcL (4.19-5.50); Red Cell Distribution Width 14.1 % (11.5-14.5); Segmented Neutrophils % 53.7 %
[2018-10-18 07:31] LABS: BUN/Creatinine Ratio 20 (6-26); Blood Urea Nitrogen 16 mg/dL (6-20); Calcium 8.5 mg/dL (8.6-10.3); Carbon Dioxide 23 mEq/L (23-29); Chloride 103 mEq/L (98-107); Glucose 155 mg/dL (70-105); Magnesium 1.8 mg/dL (1.6-2.6); Osmolality,Calculated 282 (280-300); Phosphorous 2.7 mg/dL (2.7-4.5); Potassium 3.5 mEq/L (3.5-5.1); Sodium 134 mEq/L (136-145); eGFR For Non-African Americans > 60 (> 60)
[2018-10-18 08:00] VITALS: BP 90/65
[2018-10-18] MEDS: Ranolazine 500 MG TAB.ER.12H PO SCH (09:25)
[2018-10-18] MEDS: Sucralfate 1 GM TABLET PO SCH ×2 (09:25→13:52)
[2018-10-18] MEDS: Pantoprazole 40 MG VIAL IVP SCH (09:25)
[2018-10-18] MEDS: levoFLOXacin 750 MG TABLET PO SCH (09:25)
[2018-10-18] MEDS: Lactulose Oral Soln 20 GM/30 ML UDC PO SCH (09:26)
[2018-10-18] MEDS: Aspirin Enteric Coated 81 MG Tablet PO SCH (09:26)
--- NOTE | 2018-10-18 10:08 | Discharge Summary ---
- NOTES TO OUTPATIENT PROVIDER Notes to Outpatient Provider: have a repeat cbc within a week Orders not resulted at time of discharge: Pending orders 10/14/18 16:41 Culture,Blood [BC] Stat 10/15/18 07:54 MRSA Surveillance Screen [MOLMIC] Stat 10/15/18 09:55 Legionella Culture [RM] Stat Date of Encounter: 10/18/18 Time of Encounter: 10:03 - Discharge Diagnosis (1) CHF (congestive heart failure) Priority: Primary Status: Chronic Qualifiers: Heart failure type: systolic Heart failure chronicity: acute on chronic Qualified Code(s): I50.23 - Acute on chronic systolic (congestive) heart failure (2) Pneumonia Priority: Primary Status: Acute Qualifiers: Pneumonia type: due to unspecified organism Laterality: bilateral Lung location: unspecified part of lung Qualified Code(s): J18.9 - Pneumonia, unspecified organism (3) Depression Priority: Secondary Status: Chronic Qualifiers: Depression Type: unspecified Qualified Code(s): F32.9 - Major depressive disorder, single episode, unspecified (4) Generalized weakness Priority: Secondary Status: Chronic (5) CAD (coronary artery disease) Priority: Secondary Status: Chronic Qualifiers: Coronary Disease-Associated Artery/Lesion type: unspecified vessel or lesion type [place] vs. transplanted heart: unspecified whether [place] or transplanted heart Associated angina: angina presence unspecified Qualified Code(s): I25.10 - Atherosclerotic heart disease of [place] coronary artery without angina pectoris (6) Gastritis Priority: Secondary Status: Acute Qualifiers: Gastritis type: unspecified gastritis Chronicity: acute Gastritis bleeding: without bleeding Qualified Code(s): K29.00 - Acute gastritis without bleeding (7) Esophagitis Priority: Secondary Status: Acute (8) Constipation Priority: Secondary Status: Chronic Qualifiers: Constipation type: unspecified constipation type Qualified Code(s): K59.00 - Constipation, unspecified (9) Elevated troponin Priority: Secondary Status: Ruled-out (10) HLD (hyperlipidemia) Priority: Secondary Status: Chronic Qualifiers: Hyperlipidemia type: unspecified Qualified Code(s): E78.5 - Hyperlipidemia, unspecified (11) Hypotension Priority: Secondary Status: Resolved Qualifiers: Hypotension type: unspecified hypotension type Qualified Code(s): I95.9 - Hypotension, unspecified (12) Severe protein-calorie malnutrition Priority: Secondary Status: Chronic Hospital course: Mr. Tang is a 43 year old male PMH of severe CHF e.f 20%, CAD, multiples MIs last one a month ago, Interstitial lung disease? and recent pneumonia. Patient presented to the ED due to generalized weakness, shortness of breath, and chest discomfort. patient was admitted to the hospital due to generalized weakness, pneumonia and chf. CT/CT chest wo con IMPRESSION: Patchy ground-glass infiltrate seen in both the left and right lungs may be secondary to early or atypical pneumonia. EV/EV echocardiogram w enhance Impressions: LVEF 20-25%. Severely dilated left ventricle. Severe global and segmental left ventricular systolic dysfunction. Patient was managed with broad spectrum IV antibiotics. During this admission patient has been euvolemic. Unable to be started on a bb, aces or diuretic as BP has been running in the low 90s. patient recommended to follow up with his nonfarm animal caretaker and discuss possible evaluation for LVAD. Recommended to check his BP before re-starting his diuretics. Patient was started on midodrine 5mg/PO TID to see if this can help up titrate his heart failure medications. Patient reported being constipated for 2 weeks, started on lactulose and had a BM with streaks of blood. Serial H&H done, H&H remained stable. Patient was recommended to have a repeat cbc within a week of hospital discharge . Patient is hemodynamically stable to be discharge. - Time Spent with Patient Total time spent providing and/or coordinating discharge services: Time spent: Greater than 30 minutes (35) - Discharge Medications Prescriptions: New Sucralfate [Carafate] 1 gm PO QIDAC 30 Days #120 tablet Lactulose 20 gm PO BID PRN 30 Days #60 udc PRN Reason: Constipation levoFLOXacin [Levaquin] 750 mg PO DAILY 7 Days #7 tablet Pantoprazole Sodium 40 mg PO DAILY 30 Days #30 tablet Midodrine [ProAmatine] 5 mg PO 0800,1200 30 Days #90 tablet Ranolazine [Ranexa] 500 mg PO BID 30 Days #60 tab.er.12h Continued Aspirin Enteric Coated [Aspirin EC] 81 mg PO DAILY Atorvastatin [Lipitor] 40 mg PO HS Benzonatate [Tessalon] 200 mg PO TID PRN PRN Reason: Cough Carvedilol 3.125 mg PO BID Clopidogrel [Plavix] 75 mg PO DAILY Furosemide [Lasix] 20 mg PO DAILY Lisinopril 2.5 mg PO DAILY Nitroglycerin 0.4 mg SL AD PRN PRN Reason: Chest Pain Nystatin [Nystatin Suspension] 500,000 unit PO QID Phenol [Chloraseptic] 2 spray MM 3-4XD PRN PRN Reason: SORE THROAT Potassium Chloride [Klor-Con 10] 10 meq PO DAILY Discontinued Doxycycline Hyclate 100 mg PO BID Metoprolol XL (24 HR) Succ [Toprol Xl] 25 mg PO DAILY Home Medications: Aspirin Enteric Coated [Aspirin EC] 81 mg PO DAILY 10/14/18 [History] Atorvastatin [Lipitor] 40 mg PO HS 10/14/18 [History] Benzonatate [Tessalon] 200 mg PO TID PRN 10/14/18 [History] Carvedilol 3.125 mg PO BID 10/14/18 [History] Clopidogrel [Plavix] 75 mg PO DAILY 10/14/18 [History] Furosemide [Lasix] 20 mg PO DAILY 10/14/18 [History] Lisinopril 2.5 mg PO DAILY 10/14/18 [History] Nitroglycerin 0.4 mg SL AD PRN 10/14/18 [History] Nystatin [Nystatin Suspension] 500,000 unit PO QID 10/14/18 [History] Phenol [Chloraseptic] 2 spray MM 3-4XD PRN 10/14/18 [History] Potassium Chloride [Klor-Con 10] 10 meq PO DAILY 10/14/18 [History] Lactulose 20 gm PO BID PRN 30 Days #60 udc 10/18/18 [Rx] Midodrine [ProAmatine] 5 mg PO 0800,1200 30 Days #90 tablet 10/18/18 [Rx] Pantoprazole Sodium 40 mg PO DAILY 30 Days #30 tablet. 10/18/18 [Rx] Ranolazine [Ranexa] 500 mg PO BID 30 Days #60 tab.er.12h 10/18/18 [Rx] Sucralfate [Carafate] 1 gm PO QIDAC 30 Days #120 tablet 10/18/18 [Rx] levoFLOXacin [Levaquin] 750 mg PO DAILY 7 Days #7 tablet 10/18/18 [Rx] Allergies/Adverse Reactions: Allergy/AdvReac Type Severity Reaction Status Date / Time ibuprofen [From Motrin] Allergy See Verified 10/14/18 15:05 Comments tramadol Allergy See Verified 10/14/18 15:05 Comments IVP DYE AdvReac Itching Uncoded 10/14/18 15:05 Date of admission: 10/15/18 07:50 Primary care physician: PCP NONE Consults: 10/14/18 17:05 Consult to Occupational Therapy [CONS] Routine Comment: Evaluate, develop and implement POC Reason for Consult: generalized weakness Does patient have active BEDREST order?: No Is patient medically & hemodynamically stable?: Yes Consult to Physical Therapy [CONS] Routine Comment: Evaluate, develop and implement POC Reason for Consult: generalized weakness Does patient have active BEDREST order?: No Is patient medically & hemodynamically stable?: Yes 10/14/18 17:20 Consult to Psychiatry [CONS] Routine Consulting Provider: Psychiatry Jessica Reason consult: Other [place] Slip initiated date and time: depression 10/15/18 02:03 Consult to Test Engine Evaluator [CONS] Routine Reason for SW Consult: Poor living conditions with his current home situation. 10/15/18 08:46 Consult to Cardiology [CONS] Routine Comment: Consulting Provider: Cardiology Jessica Reason for Consult: severe chf Call Completed: No - Constitutional Vitals: Temp Pulse Resp BP Pulse Ox 98.5 F 94 16 90/65 97 10/18/18 07:58 10/18/18 07:58 10/18/18 07:58 10/18/18 07:58 10/18/18 07:58 Exam: Vitals: Reviewed General: Alert and oriented x4. In no distress Cardiovascular: RRR, normal S1 & S2, no rubs, murmurs or gallops. Lungs: CTA b/l, no wheezes or crackles. Abdomen: Soft, non-tender, no rigidity. NABS in all 4 quadrants Extremities: No edema Neurological: No focal neurological deficits Rest of the physical exam is non contributory - Patient Status Disposition: Home, Self-Care Condition: Good Functional capacity at discharge: independent ambulation Overall status at discharge: patient is progressing back to baseline - Discharge Instructions Instructions: Sucralfate (By mouth), Lactulose (By mouth), Midodrine (By mouth), Levofloxacin (By mouth), Pantoprazole (By mouth), Ranolazine (By mouth), Heart Failure (DC), Gastritis (DC), Depression (DC), Hypotension (DC), Pneumonia (DC) Follow Up With: NONE,PCP [Primary Care Provider] - ([facility]. He will make his own dr appointment when he gets home) - Diet and Activity Activity: as per physical therapy, resume usual activities as tolerated Diet: low salt diet
== END 2018-10-18 14:57 | disposition home or self-care (01) | DRG 291 ==
LOC: 2NENU 13:18 → EMEROOARM 13:18 → SUATTDRO 18:41 → 2NENU 18:59
PROVIDERS: ADMIT Internal Medicine Nephrology; ATTEND Internal Medicine